=== PATIENT | male | born 1945 | race Caucasian/White ===

== ENCOUNTER 2016-09-08 13:53 | Emergency (ER) | payer MEDICARE, BC ==
[2016-09-08 14:27] VITALS: RESP 18
[2016-09-08] MEDS ORDERED: SODIUM CHLORIDE 0.9% 1,000 ML IV ONE (15:15)
[2016-09-08] MEDS ORDERED: MORPHINE SULFATE 4 MG/ML SYRINGE IV STA (15:15)
--- NOTE | 2016-09-08 15:18 | ED ---
Fall HPI - General Chief Complaint: Fall Stated Complaint: Fall/SHIVANI/Hip pain Time Seen by Provider: 09/08/16 14:51 Source: patient Mode of arrival: wheelchair - History of Present Illness Initial Comments: Patient complains of injuries from a fall. He states that he injured his right hip, and his right shoulder. Patient also has some tenderness to the right side of his upper abdomen and lower chest. He has no nausea or vomiting. He has no neck pain. He has no neck stiffness. He denied his head. He denies conscious. He has no pain or swelling in the calves. He has no palpitations. He took no pain medication prior to arrival. - Related Data Home Medications Medication Instructions Recorded Confirmed Atorvastatin [Lipitor] 20 mg PO HS 09/08/16 09/08/16 Cholecalciferol [Vitamin D3] 1,000 unit PO DAILY 09/08/16 09/08/16 Cinnamon Bark [Cinnamon] 500 mg PO DAILY 09/08/16 09/08/16 Garlic 1 tab PO DAILY 09/08/16 09/08/16 [place]-3 Fatty Acids/Fish Oil [Fish 1 cap PO DAILY 09/08/16 09/08/16 Oil 1,000 mg Softgel] Potassium 99 mg PO DAILY 09/08/16 09/08/16 Ubidecarenone [Co Q-10] 100 mg PO DAILY 09/08/16 09/08/16 Vitamin B Complex 1 cap PO DAILY 09/08/16 09/08/16 amLODIPine BESYLATE/BENAZEPRIL 1 cap PO DAILY 09/08/16 09/08/16 [Lotrel 10-20 mg Capsule] Allergies Allergy/AdvReac Type Severity Reaction Status Date / Time SEASONAL ALLERGIES Allergy Itching Uncoded 09/08/16 15:48 Review of Systems ROS Statement: Those systems with pertinent positive or pertinent negative responses have been documented in the HPI. ROS Other: All systems not noted in ROS Statement are negative. Past Medical History Past Medical History: Cancer, Hyperlipidemia, Hypertension Additional Past Medical History / Comment(s): cervical spine pain History of Any Multi-Drug Resistant Organisms: None Reported Past Surgical History: Adenoidectomy, Hernia Repair, Orthopedic Surgery, Tonsillectomy Additional Past Surgical History / Comment(s): heel spurs, bilateral hand, throat. skin cancer Past Psychological History: No Psychological Hx Reported Smoking Status: Never smoker Past Alcohol Use History: Daily Past Drug Use History: None Reported General Exam Limitations: no limitations General appearance: alert, in no apparent distress Head exam: Present: atraumatic, normocephalic, normal inspection Eye exam: Present: normal appearance, PERRL, EOMI. Absent: scleral icterus, conjunctival injection, periorbital swelling ENT exam: Present: normal exam, mucous membranes moist Neck exam: Present: normal inspection. Absent: tenderness, meningismus, lymphadenopathy Respiratory exam: Present: normal lung sounds bilaterally. Absent: respiratory distress, wheezes, rales, rhonchi, stridor Cardiovascular Exam: Present: regular rate, normal rhythm, normal heart sounds. Absent: systolic murmur, diastolic murmur, rubs, gallop, clicks GI/Abdominal exam: Present: soft, tenderness, normal bowel sounds. Absent: distended, guarding, rebound, rigid Extremities exam: Present: normal inspection, full ROM, normal capillary refill. Absent: tenderness, pedal edema, joint swelling, calf tenderness Back exam: Present: normal inspection Neurological exam: Present: alert, oriented X3, CN II-XII intact Psychiatric exam: Present: normal affect, normal mood Skin exam: Present: warm, dry, intact, normal color. Absent: rash Course Vital Signs 09/08/16 14:21 Temperature 98.7 F Pulse Rate 78 Respiratory 18 Rate Blood Pressure 146/70 O2 Sat by Pulse 94 L Oximetry Medical Decision Making - Medical Decision Making Patient presents to the emerge department with a fall. He denies conscious. Imaging reveals multiple rib fractures on the right side with a tiny pneumothorax. Patient will be admitted to trauma surgery in serious condition. - Lab Data Result diagrams: 09/08/16 15:50 09/08/16 15:50 Lab Results 09/08/16 09/08/16 09/08/16 Range/Units 15:50 15:50 15:50 WBC 13.0 H (3.8-10.6) k/uL RBC 4.61 (4.30-5.90) m/uL Hgb 14.7 (13.0-17.5) gm/dL Hct 43.2 (39.0-53.0) % MCV 93.5 (80.0-100.0) fL MCH 31.8 (25.0-35.0) pg MCHC 34.0 (31.0-37.0) g/dL RDW 13.1 (11.5-15.5) % Plt Count 132 L (150-450) k/uL Neutrophils % 88 % Lymphocytes % 5 % Monocytes % 6 % Eosinophils % 1 % Basophils % 0 % Neutrophils # 11.4 H (1.3-7.7) k/uL Lymphocytes # 0.7 L (1.0-4.8) k/uL Monocytes # 0.7 (0-1.0) k/uL Eosinophils # 0.1 (0-0.7) k/uL Basophils # 0.0 (0-0.2) k/uL PT 9.8 (9.0-12.0) sec INR 1.0 (<1.1) APTT 19.2 L (22.0-30.0) sec Sodium 141 (137-145) mmol/L Potassium 3.7 (3.5-5.1) mmol/L Chloride 107 (98-107) mmol/L Carbon Dioxide 24 (22-30) mmol/L Anion Gap 10 mmol/L BUN 21 H (9-20) mg/dL Creatinine 0.90 (0.66-1.25) mg/dL Est GFR (MDRD) Af Amer >60 (>60 ml/min/1.73 sqM) Est GFR (MDRD) Non-Af >60 (>60 ml/min/1.73 sqM) Glucose 141 H (74-99) mg/dL Calcium 9.4 (8.4-10.2) mg/dL 09/08/16 15:39 Twelve-lead EKG is obtained, interpreted by me showing ventricular rate 74 bpm, normal [place] interval and Roman complexes, no ST elevation or depression, interpreted by me as normal sinus rhythm. Disposition Clinical Impression: Fall, Rib fractures Disposition: ADMITTED IP TO THIS HOSP Condition: Serious Time of Disposition: 17:04
--- NOTE | 2016-09-08 16:18 | XR ---
EXAMINATION TYPE: XR pelvis AP view DATE OF EXAM: 09/08/2016 4:15 PM CLINICAL HISTORY: pain TECHNIQUE: Single view the pelvis is submitted. FINDINGS: No evidence for fracture, dislocation or bony lesion. Joint spaces are well-preserved. S I joints appear symmetric. IMPRESSION: 1. No acute fracture or dislocation seen. ICD 10 NO FRACTURE, INITIAL EVALUATION
--- NOTE | 2016-09-08 16:21 | XR ---
EXAMINATION TYPE: XR shoulder complete RT DATE OF EXAM: 09/08/2016 4:15 PM CLINICAL HISTORY: pain TECHNIQUE: Three views of the right shoulder are obtained. COMPARISON: None FINDINGS: There is no acute fracture/dislocation evident. The acromioclavicular and glenohumeral cuate int spaces appear within normal limits. Multiple right-sided rib fractures extending from right ribs 2 through 7. No additional ribs are imaged at this time. IMPRESSION: 1. There is no acute fracture or dislocation of the right shoulder. 2. Multiple right-sided rib fractures however are noted.
--- NOTE | 2016-09-08 16:23 | XR ---
EXAMINATION TYPE: XR chest 1V portable DATE OF EXAM: 09/08/2016 4:16 PM HISTORY: Shortness of breath. COMPARISON: None. TECHNIQUE: Single view of the chest is submitted. FINDINGS: Demonstrated are scattered senescent parenchymal change. There is no evidence for focal infiltrate. The heart is stable. Hilar and mediastinal structures are within normal limits. Displaced fractures of right ribs 2 through 9. No evidence of pneumothorax. Associated pleural parenc hymal thickening. IMPRESSION: 1. Displaced fractures of right ribs 2 through 9. No evidence of pneumothorax. Associated pleural pa renchymal thickening. Correlate clinically for possible flail chest.
[2016-09-08 16:30] LABS: Basophils % (A) 0 %; CH 33.3; CHCM 35.8; Eosinophils # (A) 0.1 k/uL (0-0.7); Eosinophils % (A) 1 %; HCT 43.2 % (39.0-53.0); HDW 2.76; HGB 14.7 gm/dL (13.0-17.5); Luc # (Auto) 0.14; Luc % (Auto) 1; Lymphocytes # (A) 0.7 k/uL (1.0-4.8); Lymphocytes % (A) 5 %; MCH 31.8 pg (25.0-35.0); MCV 93.5 fL (80.0-100.0); Monocytes # (A) 0.7 k/uL (0-1.0); Monocytes % (A) 6 %; Neutrophils # (A) 11.4 k/uL (1.3-7.7); Neutrophils % (A) 88 %; RBC 4.61 m/uL (4.30-5.90); RDW 13.1 % (11.5-15.5); WBC (Perox) 13.19
[2016-09-08 16:39] LABS: Anion Gap 10 mmol/L; Blood Urea Nitrogen 21 mg/dL (9-20); Calcium 9.4 mg/dL (8.4-10.2); Carbon Dioxide 24 mmol/L (22-30); Chloride 107 mmol/L (98-107); Glucose 141 mg/dL (74-99); Non-African American GFR(MDRD) >60 (>60 ml/min/1.73 sqM); Potassium 3.7 mmol/L (3.5-5.1); Sodium 141 mmol/L (137-145)
[2016-09-08 16:43] LABS: Prothrombin Time 9.8 sec (9.0-12.0)
[2016-09-08 16:51] LABS: Partial Thromboplastin Time 19.2 sec (22.0-30.0)
[2016-09-08] MEDS ORDERED: KETOROLAC 30 MG/ML 1 ML VIAL IVP STA (16:55)
--- NOTE | 2016-09-08 16:57 | CT ---
EXAMINATION TYPE: CT ChestAbdPelvis w con DATE OF EXAM: 09/08/2016 4:42 PM COMPARISON: NONE HISTORY: 5 foot fall from ladder, landing on right shoulder and chest. CT DLP: 964.50 mGycm CONTRAST: Contrast enhanced Trauma CT of the Chest, Abdomen and Pelvis is performed with IV Contrast, patient i njected with 100 mL of Omnipaque 300. Chest: LUNGS: There is a tiny right-sided pneumothorax present estimated at less than 5%. There is pleural t hickening noted at the site of multiple right-sided rib fractures. Patchy basilar densities right gre ater than left may reflect atelectasis although a degree of contusion is not excluded. MEDIASTINUM: Thoracic aorta is of normal caliber without CT evidence to suggest traumatic induced ao rtic injury. No mediastinal fluid or blood. No pericardial fluid or cardia abnormality. The heart i s mildly enlarged. HILAR STRUCTURES: No evidence for mass. No hilar adenopathy is appreciated. OTHER: No significant abnormality. OSSEOUS: Multiple contiguous 7 displaced rib fractures extending from right rib 2 through 9. While no segmental fractures are seen, given the contiguous nature of the fractures one should correlate for possible flail chest. Right chest wall hematoma measuring 4.8 x 1.9 cm with small amount of subcutane ous air. CT ABDOMEN AND PELVIS FINDINGS: LIVER/GB: No focal laceration, contusion or subcapsular hemorrhage. No calcified gallstones. No s pace occupying hepatic lesion. Biliary tree is of normal caliber. Incidental hepatic steatosis. PANCREAS: No evidence for transection. No inflammation. No distinct mass. SPLEEN: No focal laceration, contusion or subcapsular hemorrhage. 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 ADRENALS: No hemorrhage. No nodule. No thickening. KIDNEYS/BLADDER: No focal laceration, contusion or subcapsular hemorrhage. No hydronephrosis. 8 mm calculus left kidney. No disctinct renal mass. BOWEL: Bowel is intact. No evidence for pneumoperitoneum. GENITAL ORGANS: No gross abnormality. Incidental prostate enlargement. LYMPH NODES: No greater than 1cm abdominal or pelvic lymph nodes areappreciated. AORTA: No traumatic aortic injury visualized. OSSEOUS STRUCTURES: Incidental fracture of right transverse process of L1. No additional fracture se en with certainty at this time. OTHER: No evidence for hemoperitoneum. IMPRESSION: 1. Multiple contiguous right-sided rib fractures. Correlate clinically for flail chest. 2. Very small right-sided pneumothorax estimated at less than 5%. 3. Associated pleural thickening on the right with probable basilar atelectasis. A degree of contusio n is difficult to exclude. 4. Right chest wall hematoma with a small amount of subcutaneous air. 5. No solid or hollow abdominal visceral injury 6. incidental transverse process fracture of the L1 on the right
[2016-09-08] MEDS ORDERED: ONDANSETRON 4 MG/2 ML VIAL IVP PRN (17:12)
[2016-09-08] MEDS ORDERED: MORPHINE SULFATE 4 MG/ML SYRINGE IV PRN (17:12)
[2016-09-08] MEDS ORDERED: traMADol 50 MG TAB PO PRN (17:12)
[2016-09-08] MEDS ORDERED: TEMAZEPAM 15 MG CAP PO PRN (17:12)
[2016-09-08] MEDS ORDERED: NALOXONE 0.4 MG/ML 1 ML VIAL IV PRN (17:12)
[2016-09-08 18:13] VITALS: BP 161/75; PULSE 84; TEMP 98.4
--- NOTE | 2016-09-08 19:09 | P.GSCN ---
History of Present Illness Consult date: 09/08/16 Reason for Consult: Multiple rib fractures status post fall Requesting physician: Efren Frank History of present illness: The patient is a 71-year-old gentleman who presents as a fall from an 8 foot ladder. He was in his garage attempting to place cardboard along the storage space of his garage shelf. He had misstepped and fell onto his right shoulder and onto his back. He reports the ladder falling on top of. He also reports a recent history of physical therapy along his cervical spine for bone spurs. He complains of right upper quadrant abdominal pain. Imaging studies are consistent with multiple rib fractures along the right side including atelectasis. Given the mechanism of injury including history, he is being admitted to the trauma service. He denies any loss of consciousness. Review of Systems CONSTITUTIONAL: Denies any fever or chills. Denies recent weight loss or weight gain. HEENT: Denies any trouble with vision or nosebleeds. No difficulty swallowing. He is hard of hearing. LYMPHATIC: The patient denies any lumps and bumps around the neck. ENDOCRINE: Denies any thyroid disorders. Denies any blood sugar glucose intolerance. RESPIRATORY: Denies pneumonia. Denies any troubles with breathing or dyspnea on exertion. Reports troubles with deep breathing since fall. CARDIOVASCULAR: Denies any chest pain, palpitations, or recent heart attacks. GASTROINTESTINAL: Denies heart burn, constipation or bright red blood per rectum. GENITOURINARY: Denies any blood in urine or increased urinary frequency. MUSCULOSKELETAL: Has moderate to severe back pain, stiffness or joint arthritis present prior to fall. NEUROLOGIC: Denies any numbness or tingling along the distal extremities. No seizure disorders or headaches. PSYCHIATRIC: Denies depression or suidical ideation. HEMATOLOGIC: Denies any abnormal bleeding or bruising. Past Medical History Past Medical History: Cancer, Hyperlipidemia, Hypertension Additional Past Medical History / Comment(s): cervical spine pain History of Any Multi-Drug Resistant Organisms: None Reported Past Surgical History: Adenoidectomy, Hernia Repair, Orthopedic Surgery, Tonsillectomy Additional Past Surgical History / Comment(s): heel spurs, bilateral hand, throat. skin cancer Past Psychological History: No Psychological Hx Reported Smoking Status: Never smoker Past Alcohol Use History: Daily Past Drug Use History: None Reported Medications and Allergies Home Medications Medication Instructions Recorded Confirmed Type Atorvastatin [Lipitor] 20 mg PO HS 09/08/16 09/08/16 History Cholecalciferol [Vitamin D3] 1,000 unit PO DAILY 09/08/16 09/08/16 History Cinnamon Bark [Cinnamon] 500 mg PO DAILY 09/08/16 09/08/16 History Garlic 1 tab PO DAILY 09/08/16 09/08/16 History [place]-3 Fatty Acids/Fish Oil [Fish 1 cap PO DAILY 09/08/16 09/08/16 History Oil 1,000 mg Softgel] Potassium 99 mg PO DAILY 09/08/16 09/08/16 History Ubidecarenone [Co Q-10] 100 mg PO DAILY 09/08/16 09/08/16 History Vitamin B Complex 1 cap PO DAILY 09/08/16 09/08/16 History amLODIPine BESYLATE/BENAZEPRIL 1 cap PO DAILY 09/08/16 09/08/16 History [Lotrel 10-20 mg Capsule] Allergies Allergy/AdvReac Type Severity Reaction Status Date / Time SEASONAL ALLERGIES Allergy Itching Uncoded 09/08/16 15:48 Surgical - Exam Vital Signs Temp Pulse Resp BP Pulse Ox 98.7 F 78 18 146/70 94 L 09/08/16 14:21 09/08/16 14:21 09/08/16 14:21 09/08/16 14:21 09/08/16 14:21 GENERAL: Well developed and in no acute distress. Pleasant. HEENT: No sclera icterus. Extraocular movements grossly intact. Moist buccal mucosa. Head is atraumatic, normocephalic. No nasal drainage. He is hard of hearing on exam. NECK: Supple without lymphadenopathy. No JV distention. No cervical spine tenderness. CHEST: Non-labored respirations. Faint inspiratory effort. Tender along the right mid lateral and inferior chest wall. CARDIOVASCULAR: Regular rate and rhythm. Palpable 2+ radial pulses. ABDOMEN: Soft. Mild distention. No peritonitis. Minimal tenderness right upper quadrant. MUSCULOSKELETAL: No clubbing, cyanosis or edema. NEUROLOGIC: No focal or lateralizing signs. Cranial nerves II through XII grossly within normal limits. PSYCH: Appropriate affect. Alert and oriented to person, place and time. Results - Labs 09/08/16 15:50 09/08/16 15:50 Abnormal Lab Results - Last 24 Hours (Table) 09/08/16 09/08/16 09/08/16 Range/Units 15:50 15:50 15:50 WBC 13.0 H (3.8-10.6) k/uL Plt Count 132 L (150-450) k/uL Neutrophils # 11.4 H (1.3-7.7) k/uL Lymphocytes # 0.7 L (1.0-4.8) k/uL APTT 19.2 L (22.0-30.0) sec BUN 21 H (9-20) mg/dL Glucose 141 H (74-99) mg/dL Diabetes panel 09/08/16 Range/Units 15:50 Sodium 141 (137-145) mmol/L Potassium 3.7 (3.5-5.1) mmol/L Chloride 107 (98-107) mmol/L Carbon Dioxide 24 (22-30) mmol/L BUN 21 H (9-20) mg/dL Creatinine 0.90 (0.66-1.25) mg/dL Glucose 141 H (74-99) mg/dL Calcium 9.4 (8.4-10.2) mg/dL Calcium panel 09/08/16 Range/Units 15:50 Calcium 9.4 (8.4-10.2) mg/dL Pituitary panel 09/08/16 Range/Units 15:50 Sodium 141 (137-145) mmol/L Potassium 3.7 (3.5-5.1) mmol/L Chloride 107 (98-107) mmol/L Carbon Dioxide 24 (22-30) mmol/L BUN 21 H (9-20) mg/dL Creatinine 0.90 (0.66-1.25) mg/dL Glucose 141 H (74-99) mg/dL Calcium 9.4 (8.4-10.2) mg/dL Adrenal panel 09/08/16 Range/Units 15:50 Sodium 141 (137-145) mmol/L Potassium 3.7 (3.5-5.1) mmol/L Chloride 107 (98-107) mmol/L Carbon Dioxide 24 (22-30) mmol/L BUN 21 H (9-20) mg/dL Creatinine 0.90 (0.66-1.25) mg/dL Glucose 141 H (74-99) mg/dL Calcium 9.4 (8.4-10.2) mg/dL - Imaging Chest x-ray: report reviewed CT scan - abdomen: report reviewed, image reviewed CT scan - chest: report reviewed, image reviewed CT scan - pelvis: report reviewed (Findings are consistent with multiple right- sided for acute fractures 2 through 7 with small pneumothorax and subcutaneous emphysema with chest wall hematoma.), image reviewed Assessment and Plan (1) Fall from ladder Status: Acute (2) Multiple fractures of ribs, right side, initial encounter for closed fracture Status: Acute (3) Traumatic pneumothorax Status: Acute (4) Contusion of right chest wall Status: Acute (5) Mild basilar atelectasis of both lungs Status: Acute (6) Hypertensive heart disease Status: Chronic (7) Hard of hearing Status: Chronic (8) Right upper quadrant pain Status: Acute Plan: 1. Per trauma protocol, patient needs ICU criteria for admission. Agree with admission with pulmonary consultation. 2. Pulmonary toilet advised. 3. DVT prophylaxis. 4. Antibiotic prophylaxis. 5. Supplemental oxygen for traumatic small pneumothorax. 6. Pain management for multiple rib fractures. ADDENDUM: I was contacted by the emergency room provider whereby no intensive care unit beds were available. As a result, patient will be transferred for critical care bed at a tertiary facility. The above was described to the patient's family regarding plan of care.
[2016-09-08] MEDS ORDERED: ATORVASTATIN 20 MG TAB PO SCH (21:00)
[2016-09-08] MEDS ORDERED: FAMOTIDINE 20 MG TAB PO SCH (21:00)
[2016-09-09] MEDS ORDERED: LISINOPRIL 20 MG TAB PO SCH (09:00)
[2016-09-09] MEDS ORDERED: CHOLECALCIFEROL 1,000 UNIT TAB PO SCH (09:00)
[2016-09-09] MEDS ORDERED: amLODIPine 10 MG TAB PO SCH (09:00)
== END 2016-09-08 18:48 | disposition other institution (70) ==
LOC: EC 13:53 → UNDOADMIN 17:12 → 5MS5E 17:12 → EC 18:48
DX: S27.0XXA Traumatic pneumothorax, initial encounter (principal); S22.41XA Multiple fractures of ribs, right side, initial encounter for closed fracture; E78.5 Hyperlipidemia, unspecified; Z79.899 Other long term (current) drug therapy; Z91.048 Other nonmedicinal substance allergy status; W11.XXXA Fall on and from ladder, initial encounter; Y92.015 Private garage of single-family (private) house as the place of occurrence of the external cause; I11.9 Hypertensive heart disease without heart failure
CPT/HCPCS: 36415; 93005; 80048; 85025; 85610; 85730; 71010; 72170; 73030; 71260; 74177; 96374; 96375; 99285; J2270; J1885; Q9967

== ENCOUNTER 2016-09-16 15:33 | Inpatient (IN) | payer MEDICARE, BC ==
[2016-09-16 17:34] LABS: Calcium 9.4 mg/dL (8.4-10.2); Magnesium 2.8 mg/dL (1.6-2.3); Potassium 3.8 mmol/L (3.5-5.1); Total Bilirubin 0.8 mg/dL (0.2-1.3); Total Protein 6.6 g/dL (6.3-8.2)
--- NOTE | 2016-09-16 17:50 | XR ---
EXAMINATION TYPE: XR chest 2V DATE OF EXAM: 09/16/2016 5:40 PM COMPARISON: 09/08/2016 HISTORY: Chest pain TECHNIQUE: Frontal and lateral views of the chest are obtained. FINDINGS: There is bilateral patchy infiltrate and atelectasis in the lower lobes in the basal segme nts. There is no heart failure. There are no hilar masses. Mediastinum is normal. IMPRESSION: Bilateral basilar pulmonary infiltrates and atelectasis appear worse than last exam. No heart failure. Multiple right-sided old rib fractures.
[2016-09-16 17:52] LABS: Appearance,Urine Cloudy (Clear); Bilirubin,Urine Negative (Negative); Glucose,Urine (UA) Negative (Negative); Ketones,Urine Negative (Negative); Leukocyte Esterase,Urine Negative (Negative); Mucus,Urine Rare /hpf; Nitrite,Urine Negative (Negative); Particle Count 4721; Protein,Urine Trace (Negative); RBC,Urine 1 /hpf (0-5); Squamous Epithelial Cell,Urine 1 /hpf (0-4); UA Billing (MACRO vs. MICRO) MICRO; Urobilinogen,Urine <2.0 mg/dL (<2.0); WBC,Urine 13 /hpf (0-5)
[2016-09-16 17:53] LABS: Aty Lym Flag Slight; CH 33.7; CHCM 36.9; HCT 40.3 % (39.0-53.0); HGB 14.4 gm/dL (13.0-17.5); MCH 32.9 pg (25.0-35.0); MCHC 35.8 g/dL (31.0-37.0); MCV 91.7 fL (80.0-100.0); Mean Platelet Volume 8.7; RBC 4.39 m/uL (4.30-5.90); RDW 12.9 % (11.5-15.5); WBC 5.2 k/uL (3.8-10.6); WBC (Perox) 5.32
[2016-09-16 17:54] LABS: Creatine Kinase 52 U/L (55-170)
[2016-09-16 18:07] LABS: Troponin I <0.012 ng/mL (0.000-0.034)
[2016-09-16 18:38] LABS: Prothrombin Time 10.2 sec (9.0-12.0)
[2016-09-16] MEDS ORDERED: IV VANCOMYCIN PER PHARMACY 1 EACH MISC MISCELLANE PRN (18:47)
[2016-09-16 18:49] LABS: Add Differential Manual Differential
[2016-09-16] MEDS ORDERED: VANCOMYCIN 1,500 MG in SODIUM CHLORIDE 0.9% 250 ML IVPB STA (18:53)
[2016-09-16 18:55] LABS: Band Neutrophils % 21.5 %; Large Platelets Present; Metamyelocytes % 0.5 %; Nucleated Red Blood Cells 0 /100 WBC (0-0); Polychromasia Present; Total Cells Counted 200
[2016-09-16 18:56] LABS: Toxic Granulation Present
[2016-09-16] MEDS ORDERED: ENOXAPARIN 80 MG/0.8 ML SYRINGE SQ STA (19:48)
[2016-09-16] MEDS ORDERED: PNEUMONIA PROTOCOL UTILIZED 1 EACH MISC PO PRN (19:55)
[2016-09-16] MEDS ORDERED: DIAZEPAM 5 MG TAB PO PRN (20:12)
[2016-09-16] MEDS ORDERED: FLUTICASONE 50MCG/SPRAY NASAL 16GM EA NOSTRIL PRN (20:12)
--- NOTE | 2016-09-16 20:14 | ED ---
SOB HPI - General Chief Complaint: Shortness of Breath Stated Complaint: Dr Emely/Chest Pain Time Seen by Provider: 09/16/16 16:44 Source: patient Mode of arrival: wheelchair Limitations: no limitations - History of Present Illness Initial Comments: This patient is 71-year-old man who presents with complaint of worsening or shortness of breath also a cough and feeling cold. The patient had a fall approximately 9 days ago and reportedly had broken multiple ribs on the right side. The patient had been initially seen here and then transferred to [place] to be admitted on the surgical intensive care area the patient had been discharged to 4 days ago and over the interim has started to have symptoms described. The patient per his family also has been more somnolent and seems a little bit confused at times. Patient is continue to have some moderate right- sided chest wall pain. He denies hemoptysis. Patient denies leg pain or swelling. MD Complaint: shortness of breath Onset/Timin -: days(s) Quality: aching Consistency: constant Improves With: nothing Worsens With: movement Context: trauma/injury Treatments Prior to Arrival: none - Related Data Home Medications Medication Instructions Recorded Confirmed Atorvastatin [Lipitor] 20 mg PO HS 09/08/16 09/16/16 Cholecalciferol [Vitamin D3] 1,000 unit PO DAILY 09/08/16 09/16/16 Cinnamon Bark [Cinnamon] 500 mg PO DAILY 09/08/16 09/16/16 Garlic 1 tab PO DAILY 09/08/16 09/16/16 [place]-3 Fatty Acids/Fish Oil [Fish 1 cap PO DAILY 09/08/16 09/16/16 Oil 1,000 mg Softgel] Potassium 99 mg PO DAILY 09/08/16 09/16/16 Ubidecarenone [Co Q-10] 100 mg PO DAILY 09/08/16 09/16/16 Vitamin B Complex 1 cap PO DAILY 09/08/16 09/16/16 amLODIPine BESYLATE/BENAZEPRIL 1 cap PO DAILY 09/08/16 09/16/16 [Lotrel 10-20 mg Capsule] Ascorbic Acid [Vitamin C] 500 mg PO DAILY 09/16/16 09/16/16 [place] Fruit Extract 1 tab PO DAILY 09/16/16 09/16/16 Diazepam [Valium] 5 mg PO Q8H PRN 09/16/16 09/16/16 Fluticasone Nasal [place] [Flonase 2 spr EA NOSTRIL DAILY PRN 09/16/16 09/16/16 Nasal [place]] HYDROmorphone HCL [Dilaudid] 4 mg PO Q6H PRN 09/16/16 09/16/16 Ibuprofen [Motrin] 800 mg PO TID PRN 09/16/16 09/16/16 Lidocaine 5% Oint [Xylocaine 5% 1 applic TOPICAL TID PRN 09/16/16 09/16/16 Oint] hydrOXYzine PAMOATE [Vistaril] 25 mg PO Q8H PRN 09/16/16 09/16/16 Allergies Allergy/AdvReac Type Severity Reaction Status Date / Time SEASONAL ALLERGIES Allergy Itching Uncoded 09/16/16 15:46 Review of Systems ROS Statement: Those systems with pertinent positive or pertinent negative responses have been documented in the HPI. ROS Other: All systems not noted in ROS Statement are negative. Constitutional: Reports: chills, weakness Eyes: Denies: vision change Respiratory: Reports: as per HPI, cough, dyspnea. Denies: wheezes, hemoptysis Cardiovascular: Reports: as per HPI, chest pain. Denies: orthopnea, edema, syncope Gastrointestinal: Reports: constipation. Denies: abdominal pain, nausea, vomiting, diarrhea Genitourinary: Denies: dysuria, hematuria Musculoskeletal: Denies: back pain Skin: Denies: rash Neurological: Reports: confusion. Denies: headache, weakness, numbness, paresthesias Past Medical History Past Medical History: Cancer, Hyperlipidemia, Hypertension Additional Past Medical History / Comment(s): cervical spine pain History of Any Multi-Drug Resistant Organisms: None Reported Past Surgical History: Adenoidectomy, Hernia Repair, Orthopedic Surgery, Tonsillectomy Additional Past Surgical History / Comment(s): heel spurs, bilateral hand, throat. skin cancer Past Psychological History: No Psychological Hx Reported Smoking Status: Never smoker Past Alcohol Use History: Daily Past Drug Use History: None Reported General Exam Limitations: no limitations General appearance: alert, in no apparent distress Head exam: Present: atraumatic, normocephalic Eye exam: Present: normal appearance. Absent: scleral icterus, conjunctival injection ENT exam: Present: mucous membranes dry Neck exam: Present: normal inspection Respiratory exam: Present: rales (Bilateral bases), rhonchi, chest wall tenderness (Right chest wall tenderness and ecchymosis). Absent: respiratory distress, wheezes, accessory muscle use, prolonged expiratory Cardiovascular Exam: Present: regular rate, normal rhythm, normal heart sounds. Absent: systolic murmur, diastolic murmur, rubs, gallop GI/Abdominal exam: Present: soft, distended, diminished bowel sounds. Absent: tenderness, guarding, rebound, mass, pulsatile mass, hernia Extremities exam: Present: normal inspection, normal capillary refill. Absent: pedal edema, calf tenderness Back exam: Present: normal inspection. Absent: CVA tenderness (R), CVA tenderness (L) Neurological exam: Present: alert. Absent: oriented X3 (Shouldn't is oriented only to person and place did not know the date though.) Skin exam: Present: warm, dry, intact, normal color. Absent: rash Course Vital Signs 09/16/16 09/16/16 09/16/16 15:42 16:39 17:52 Temperature 100.1 F H 98.6 F 98.8 F Pulse Rate 91 94 92 Respiratory 18 22 18 Rate Blood Pressure 112/57 123/60 116/57 O2 Sat by Pulse 93 L 91 L 93 L Oximetry 09/16/16 18:28 Temperature 98.7 F Pulse Rate 91 Respiratory 17 Rate Blood Pressure 120/62 O2 Sat by Pulse 91 L Oximetry Medical Decision Making - Lab Data Result diagrams: 09/16/16 17:10 09/16/16 17:10 Lab Results 09/16/16 09/16/16 09/16/16 Range/Units 17:10 17:10 17:10 WBC 5.2 (3.8-10.6) k/uL RBC 4.39 (4.30-5.90) m/uL Hgb 14.4 (13.0-17.5) gm/dL Hct 40.3 (39.0-53.0) % MCV 91.7 (80.0-100.0) fL MCH 32.9 (25.0-35.0) pg MCHC 35.8 (31.0-37.0) g/dL RDW 12.9 (11.5-15.5) % Plt Count 214 (150-450) k/uL Neutrophils % (Manual) 26.5 % Band Neutrophils % 21.5 % Lymphocytes % (Manual) 20.0 % Monocytes % (Manual) 29.0 % Eosinophils % (Manual) 2.5 % Metamyelocytes % 0.5 % Neutrophils # (Manual) 2.5 (1.3-7.7) k/uL Lymphocytes # (Manual) 1.0 (1.0-4.8) k/uL Monocytes # (Manual) 1.5 H (0-1.0) k/uL Eosinophils # (Manual) 0.1 (0-0.7) k/uL Nucleated RBCs 0 (0-0) /100 WBC Toxic Granulation Present Large Platelets Present Polychromasia Present PT (9.0-12.0) sec INR (<1.1) APTT (22.0-30.0) sec D-Dimer (<0.60) mg/L FEU Sodium 129 L (137-145) mmol/L Potassium 3.8 (3.5-5.1) mmol/L Chloride 91 L (98-107) mmol/L Carbon Dioxide 16 L (22-30) mmol/L Anion Gap 22 mmol/L BUN 97 H* (9-20) mg/dL Creatinine 2.34 H (0.66-1.25) mg/dL Est GFR (MDRD) Af Amer 34 (>60 ml/min/1.73 sqM) Est GFR (MDRD) Non-Af 28 (>60 ml/min/1.73 sqM) Glucose 135 H (74-99) mg/dL Plasma Lactic Acid [place] (0.7-2.0) mmol/L Calcium 9.4 (8.4-10.2) mg/dL Magnesium 2.8 H (1.6-2.3) mg/dL Total Bilirubin 0.8 (0.2-1.3) mg/dL AST 23 (17-59) U/L ALT 69 (21-72) U/L Alkaline Phosphatase 93 (38-126) U/L Total Creatine Kinase 52 L (55-170) U/L CK-MB (CK-2) 3.0 H* (0.0-2.4) ng/mL CK-MB (CK-2) Rel Index 5.8 Troponin I <0.012 (0.000-0.034) ng/mL NT-Pro-B Natriuret Pep pg/mL Total Protein 6.6 (6.3-8.2) g/dL Albumin 3.6 (3.5-5.0) g/dL Urine Color Urine Appearance (Clear) Urine pH (5.0-8.0) Ur Specific [place] (1.001-1.035) Urine Protein (Negative) Urine Glucose (UA) (Negative) Urine Ketones (Negative) Urine Blood (Negative) Urine Nitrate (Negative) Urine Bilirubin (Negative) Urine Urobilinogen (<2.0) mg/dL Ur Leukocyte Esterase (Negative) Urine RBC (0-5) /hpf Urine WBC (0-5) /hpf Ur Squamous Epith Cells (0-4) /hpf Hyaline Casts (0-2) /lpf Urine Mucus (None) /hpf 09/16/16 09/16/16 09/16/16 Range/Units 17:10 17:10 17:20 WBC (3.8-10.6) k/uL RBC (4.30-5.90) m/uL Hgb (13.0-17.5) gm/dL Hct (39.0-53.0) % MCV (80.0-100.0) fL MCH (25.0-35.0) pg MCHC (31.0-37.0) g/dL RDW (11.5-15.5) % Plt Count (150-450) k/uL Neutrophils % (Manual) % Band Neutrophils % % Lymphocytes % (Manual) % Monocytes % (Manual) % Eosinophils % (Manual) % Metamyelocytes % % Neutrophils # (Manual) (1.3-7.7) k/uL Lymphocytes # (Manual) (1.0-4.8) k/uL Monocytes # (Manual) (0-1.0) k/uL Eosinophils # (Manual) (0-0.7) k/uL Nucleated RBCs (0-0) /100 WBC Toxic Granulation Large Platelets Polychromasia PT (9.0-12.0) sec INR (<1.1) APTT (22.0-30.0) sec D-Dimer (<0.60) mg/L FEU Sodium (137-145) mmol/L Potassium (3.5-5.1) mmol/L Chloride (98-107) mmol/L Carbon Dioxide (22-30) mmol/L Anion Gap mmol/L BUN (9-20) mg/dL Creatinine (0.66-1.25) mg/dL Est GFR (MDRD) Af Amer (>60 ml/min/1.73 sqM) Est GFR (MDRD) Non-Af (>60 ml/min/1.73 sqM) Glucose (74-99) mg/dL Plasma Lactic Acid [place] 0.7 (0.7-2.0) mmol/L Calcium (8.4-10.2) mg/dL Magnesium (1.6-2.3) mg/dL Total Bilirubin (0.2-1.3) mg/dL AST (17-59) U/L ALT (21-72) U/L Alkaline Phosphatase (38-126) U/L Total Creatine Kinase (55-170) U/L CK-MB (CK-2) (0.0-2.4) ng/mL CK-MB (CK-2) Rel Index Troponin I (0.000-0.034) ng/mL NT-Pro-B Natriuret Pep 307 pg/mL Total Protein (6.3-8.2) g/dL Albumin (3.5-5.0) g/dL Urine Color Yellow Urine Appearance Cloudy (Clear) Urine pH 5.0 (5.0-8.0) Ur Specific [place] 1.010 (1.001-1.035) Urine Protein Trace H (Negative) Urine Glucose (UA) Negative (Negative) Urine Ketones Negative (Negative) Urine Blood Trace H (Negative) Urine Nitrate Negative (Negative) Urine Bilirubin Negative (Negative) Urine Urobilinogen <2.0 (<2.0) mg/dL Ur Leukocyte Esterase Negative (Negative) Urine RBC 1 (0-5) /hpf Urine WBC 13 H (0-5) /hpf Ur Squamous Epith Cells 1 (0-4) /hpf Hyaline Casts 4 H (0-2) /lpf Urine Mucus Rare H (None) /hpf 09/16/16 Range/Units 18:05 WBC (3.8-10.6) k/uL RBC (4.30-5.90) m/uL Hgb (13.0-17.5) gm/dL Hct (39.0-53.0) % MCV (80.0-100.0) fL MCH (25.0-35.0) pg MCHC (31.0-37.0) g/dL RDW (11.5-15.5) % Plt Count (150-450) k/uL Neutrophils % (Manual) % Band Neutrophils % % Lymphocytes % (Manual) % Monocytes % (Manual) % Eosinophils % (Manual) % Metamyelocytes % % Neutrophils # (Manual) (1.3-7.7) k/uL Lymphocytes # (Manual) (1.0-4.8) k/uL Monocytes # (Manual) (0-1.0) k/uL Eosinophils # (Manual) (0-0.7) k/uL Nucleated RBCs (0-0) /100 WBC Toxic Granulation Large Platelets Polychromasia PT 10.2 (9.0-12.0) sec INR 1.0 (<1.1) APTT 22.0 (22.0-30.0) sec D-Dimer 4.10 H (<0.60) mg/L FEU Sodium (137-145) mmol/L Potassium (3.5-5.1) mmol/L Chloride (98-107) mmol/L Carbon Dioxide (22-30) mmol/L Anion Gap mmol/L BUN (9-20) mg/dL Creatinine (0.66-1.25) mg/dL Est GFR (MDRD) Af Amer (>60 ml/min/1.73 sqM) Est GFR (MDRD) Non-Af (>60 ml/min/1.73 sqM) Glucose (74-99) mg/dL Plasma Lactic Acid [place] (0.7-2.0) mmol/L Calcium (8.4-10.2) mg/dL Magnesium (1.6-2.3) mg/dL Total Bilirubin (0.2-1.3) mg/dL AST (17-59) U/L ALT (21-72) U/L Alkaline Phosphatase (38-126) U/L Total Creatine Kinase (55-170) U/L CK-MB (CK-2) (0.0-2.4) ng/mL CK-MB (CK-2) Rel Index Troponin I (0.000-0.034) ng/mL NT-Pro-B Natriuret Pep pg/mL Total Protein (6.3-8.2) g/dL Albumin (3.5-5.0) g/dL Urine Color Urine Appearance (Clear) Urine pH (5.0-8.0) Ur Specific [place] (1.001-1.035) Urine Protein (Negative) Urine Glucose (UA) (Negative) Urine Ketones (Negative) Urine Blood (Negative) Urine Nitrate (Negative) Urine Bilirubin (Negative) Urine Urobilinogen (<2.0) mg/dL Ur Leukocyte Esterase (Negative) Urine RBC (0-5) /hpf Urine WBC (0-5) /hpf Ur Squamous Epith Cells (0-4) /hpf Hyaline Casts (0-2) /lpf Urine Mucus (None) /hpf - EKG Data -: EKG Interpreted by Me EKG shows normal: sinus rhythm, axis (Normal), intervals (Normal), ST-T waves Rate: normal (Rate 93 bpm) Interpretation: LVH (With repolarization abnormality), other (Old inferior infarct.) Disposition Clinical Impression: Pneumonia, Acute renal failure (ARF), Acute delirium Disposition: ADMITTED IP TO THIS [facility] Condition: Poor Referrals: Chio Rodriguez III, MD [Primary Care Provider] - 1-2 days
--- NOTE | 2016-09-16 20:59 | US ---
EXAMINATION TYPE: US venous doppler duplex LE BI DATE OF EXAM: 09/16/2016 8:45 PM COMPARISON: NONE CLINICAL HISTORY: R/O DVT. SOB, leg pain and swelling SIDE PERFORMED: Bilateral VESSELS IMAGED: External Iliac Vein (EIV) Common Femoral Vein Deep Femoral Vein Greater Saphenous Vein * Femoral Vein Popliteal Vein Small Saphenous Vein * Proximal Calf Veins (* superficial vessels) TECHNOLOGIST IMPRESSION: wnl Right Leg: Negative for DVT, at this time Left Leg: Negative for DVT, at this time IMPRESSION: Normal exam. No evidence of deep venous thrombosis in right and left leg.
[2016-09-16] MEDS: HYDROmorphone 2 MG TAB PO PRN (21:09)
[2016-09-16] MEDS: SODIUM CHLORIDE 0.9% 1,000 ML IV SCH (22:50)
[2016-09-16] MEDS: ATORVASTATIN 20 MG TAB PO SCH (22:51)
[2016-09-17] MEDS ORDERED: PIPERACILLIN-TAZOBACTAM 3.375 GM in DEXTROSE/WATER 1 50ML.BAG IVPB SCH
[2016-09-17] MEDS: HYDROmorphone 2 MG TAB PO PRN ×3 (04:23→21:44)
[2016-09-17] MEDS: SODIUM CHLORIDE 0.9% 1,000 ML IV SCH ×2 (07:01→18:03)
[2016-09-17] MEDS ORDERED: ENOXAPARIN 80 MG/0.8 ML SYRINGE SQ SCH (09:00)
[2016-09-17] MEDS ORDERED: NON-FORMULARY DRUG (Ubidecarenone [Co Q-10] 100 MG) PO SCH (09:00)
[2016-09-17] MEDS: CHOLECALCIFEROL 1,000 UNIT TAB PO SCH (09:55)
[2016-09-17] MEDS: B COMPLEX-VIT C-VIT E-ZINC 1 EACH TAB PO SCH (09:55)
[2016-09-17] MEDS: LISINOPRIL 20 MG TAB PO SCH (09:55)
[2016-09-17] MEDS: amLODIPine 10 MG TAB PO SCH (09:55)
[2016-09-17] MEDS: ASCORBIC ACID 500 MG TAB PO SCH (09:56)
--- NOTE | 2016-09-17 11:10 | XR ---
EXAMINATION TYPE: XR chest 2V DATE OF EXAM: 09/17/2016 11:05 AM COMPARISON: 09/16/2016 HISTORY: Shortness of breath FINDINGS: There is bilateral infiltrate and small right effusion. Right-sided rib fractures are noted. No sizab le pneumothorax. Heart size stable. IMPRESSION: 1. Bilateral infiltrate and small effusion. Numerous right-sided rib fractures are seen and previousl y reported.
--- NOTE | 2016-09-17 11:15 | NM ---
EXAMINATION TYPE: NM pul vent and perfuse DATE OF EXAM: 09/17/2016 11:01 AM COMPARISON: Chest x-ray 06/17/2017 HISTORY: Shortness of breath TECHNIQUE: Utilizing inhalation of 69.1 mCi Tc 99m DTPA aerosol and intravenous injection of 5.5 mCi of Tc 99m MAA, ventilation and perfusion images are acquired post injection in multiple projections. FINDINGS: There is a triple match at the right lung base corresponding to abnormal perfusion and ventilation up take and x-ray abnormality. IMPRESSION: Triple match compatible with intermediate probability for pulmonary embolism.
[2016-09-17] MEDS ORDERED: LEVOFLOXACIN 750MG-D5W PMX 750 MG in DEXTROSE/WATER 1 150ML.BAG IVPB SCH (12:00)
[2016-09-17] MEDS: PIPERACILLIN-TAZOBACTAM 3.375 GM in DEXTROSE/WATER 1 50ML.BAG IVPB SCH ×2 (14:10→22:06)
[2016-09-17] MEDS: hydrOXYzine PAMOATE 25 MG CAP PO PRN (14:19)
--- NOTE | 2016-09-17 15:08 | XR ---
EXAMINATION TYPE: XR KUB DATE OF EXAM: 09/17/2016 3:02 PM COMPARISON: NONE HISTORY: Abdominal distention TECHNIQUE: 3 views FINDINGS: There is a large amount of intestinal gas. There is no sign of free air. There are no patho logic calcifications over the kidneys. There is no evidence of a mass. Bony structures are intact. IMPRESSION: Intestinal gas pattern suggestive of ileus. No free air.
[2016-09-17] MEDS ORDERED: VANCOMYCIN 1,500 MG in SODIUM CHLORIDE 0.9% 250 ML IVPB SCH (18:00)
--- NOTE | 2016-09-17 19:31 | HP ---
DATE OF ADMISSION: CHIEF COMPLAINT: Difficulty in breathing. HISTORY OF PRESENT ILLNESS: Mr. Hein is a 71-year-old male with a past medical history of hypertension, hyperlipidemia, basal cell cancer of the skin, coming into the hospital with a chief complaint of difficulty in breathing and cough. The patient had a fall on 09/08/2016, 10 days back and had broken multiple ribs on the right side. He was initially seen in this hospital and then transferred to [place] to be admitted to the surgical intensive care. Patient has been discharged from there four days back and since then he started to have the complaints of difficulty in breathing. As per patient's family members, he has also been more somnolent and a bit confused at times. Patient states that he is in a lot of pain on the right side of his chest and cannot take any deep breaths. The patient also is having abdominal distention. He had had diarrhea a couple of times this morning and has been tested negative for C. difficile. Patient denies having any nausea or vomiting. Patient has is some mild difficulty in breathing. Denies having any chest pain. He is tachycardic. Denies having any swelling of his lower extremities. Patient has not been moving in and out of the bed due to severe pain that he has. His breathing has also been affected due to the pain. Denies having any fevers, but states that at times he feels cold. HOSPITAL COURSE: Patient had lab work done showing elevated creatinine 2.34 and due to his hypoxia and tachycardia there is a suspicion of PE, but as a CAT scan could not be done due to his acute kidney injury, patient did get VQ scan which was showing intermediate probability of pulmonary embolism. Patient has already been started on anticoagulation with Lovenox. REVIEW OF SYSTEMS: All 13 review of systems are done and negative except for the ones mentioned in the HPI. PAST MEDICAL HISTORY: Significant for basal cell cancer, status post removal, hypertension, hyperlipidemia. PAST SURGICAL HISTORY: Adenoidectomy, hernia repair, tonsillectomy. ALLERGIES: No known drug allergies. Patient's home medications: 1. Amlodipine benazepril 10/20 mg 1 capsule p.o. daily. 2. Potassium 10 mEq p.o. daily. 3. [place] 3 fatty acids. 4. Cinnamon bark 500 mg p.o. daily. 5. Vitamin B complex 1 capsule p.o. daily. 6. Garlic 1 tablet p.o. daily. 7. Vitamin D 3000 units p.o. daily. 8. Coenzyme Q 100 mg p.o. daily. 9. Atorvastatin 20 mg p.o. q.h.s. 10. Ascorbic acid 500 mg p.o. daily. 11. [place] fruit extract. 12. Diazepam 5 mg p.o. q.h.s. 13. Flonase, Dilaudid 4 mg p.o. q.6h. p.r.n. for pain. 14. Vistaril 25 mg p.o. q.8h p.r.n. for itching. 15. Motrin 800 mg p.o. 3 times a day p.r.n. for pain. 16. Lidocaine 5% ointment for local application. SOCIAL HISTORY: Never a smoker. Alcohol use daily. No history of drug abuse. FAMILY HISTORY: Positive for hypertension, hyperlipidemia, CVA/TIA, myocardial infarction. At the time of admission the patient had a fever of 100.1, heart rate of 91, respiratory rate 18, blood pressure 112/57, saturating at 93% on 2 liters of nasal cannula. GENERAL EXAMINATION: Elderly male appears to be he in slight discomfort due to abdominal distention. HEAD: Atraumatic, normocephalic. EYES: Pupils, round, and reactive to light. NECK: No JVD. No thyromegaly. CARDIOVASCULAR: S1, S2 heard. Slightly tachycardic. LUNGS: Coarse breath sounds at the lower lung bases. No wheezes. ABDOMEN: Soft, but distended. No tenderness or rigidity. Bowel sounds are hyperactive. BACK: Patient has bruising from the mid thoracic level up to his ischial tuberosity on the right side on his back. EXTREMITIES: Examination of the lower extremities no edema, no cyanosis, no clubbing. 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 No focal deficits. PSYCHIATRIC: Appropriate mood and affect. Patient's labs: Patient had a VQ scan which was showing intermediate probably of pulmonary embolism. Sodium of 129, potassium 3.8, chloride 91, bicarb 16, BUN 97, creatinine 2.34. Troponin less than 0.012. Chest x-ray showing bilateral infiltrates and small effusion and right-sided rib fractures and abdominal x-ray showing intestinal gas pattern suggestive of ileus. ASSESSMENT AND PLAN: 1. Shortness of breath, multifactorial. 2. Bilateral pulmonary infiltrates. 3. Intermediate probability of pulmonary embolism. 4. Hyponatremia. 5. Acute kidney injury. 6. Multiple right-sided rib fractures. 7. History of hypertension. 8. Hyperlipidemia. 9. History of basal cell skin cancer- s/p removal PLAN: As the patient has recent hospital stay and showing bilateral pulmonary infiltrates, will continue the patient on Zosyn and Levaquin for his chest infiltrates and due to the probability of intermediate pulmonary embolism, will continue with Lovenox and obtain a pulmonary consult. The patient is encouraged to use incentive spirometry. Reinforced that he needs to ask for pain medication if he is in pain. For his acute kidney injury we will continue with IV fluids and repeat his electrolytes for tomorrow morning. Will continue with the rest of his medication regimen and the treatment plan was discussed his and his son who are at the bedside and further recommendations depending on the progress of the patient. BRYSON
[2016-09-17] MEDS: ATORVASTATIN 20 MG TAB PO SCH (22:06)
[2016-09-18] MEDS: PIPERACILLIN-TAZOBACTAM 3.375 GM in DEXTROSE/WATER 1 50ML.BAG IVPB SCH ×2 (05:13→13:23)
[2016-09-18] MEDS: HYDROmorphone 2 MG TAB PO PRN ×2 (05:18→12:32)
[2016-09-18] MEDS: SODIUM CHLORIDE 0.9% 1,000 ML IV SCH ×3 (05:21→21:50)
[2016-09-18 06:41] LABS: Basophils % (A) 1 %; CH 33.5; CHCM 36.7; Eosinophils # (A) 0.1 k/uL (0-0.7); Eosinophils % (A) 3 %; HCT 34.1 % (39.0-53.0); HDW 3.14; HGB 11.9 gm/dL (13.0-17.5); Luc # (Auto) 0.18; Luc % (Auto) 4; Lymphocytes # (A) 0.6 k/uL (1.0-4.8); Lymphocytes % (A) 12 %; MCHC 34.8 g/dL (31.0-37.0); MCV 91.9 fL (80.0-100.0); Monocytes # (A) 0.5 k/uL (0-1.0); Monocytes % (A) 12 %; Neutrophils % (A) 67 %; RBC 3.71 m/uL (4.30-5.90); RDW 12.8 % (11.5-15.5); WBC 4.4 k/uL (3.8-10.6); WBC (Perox) 4.82
[2016-09-18 07:26] LABS: Calcium 8.3 mg/dL (8.4-10.2); Potassium 3.2 mmol/L (3.5-5.1)
[2016-09-18] MEDS: IBUPROFEN 800 MG TAB PO PRN (08:45)
[2016-09-18] MEDS: ASCORBIC ACID 500 MG TAB PO SCH (08:46)
[2016-09-18] MEDS: ENOXAPARIN 80 MG/0.8 ML SYRINGE SQ SCH (08:46)
[2016-09-18] MEDS: amLODIPine 10 MG TAB PO SCH (08:46)
[2016-09-18] MEDS: CHOLECALCIFEROL 1,000 UNIT TAB PO SCH (08:46)
[2016-09-18] MEDS: B COMPLEX-VIT C-VIT E-ZINC 1 EACH TAB PO SCH (08:46)
[2016-09-18] MEDS: LISINOPRIL 20 MG TAB PO SCH (08:47)
[2016-09-18] MEDS: hydrOXYzine PAMOATE 25 MG CAP PO PRN (12:33)
--- NOTE | 2016-09-18 12:41 | P.CNPUL ---
History of Present Illness Consult date: 09/18/16 Reason for consult: dyspnea, chest pain Chief complaint: Shortness of breath History of present illness: This a 71-year-old gentleman who apparently presents to the emergency room complaining of shortness of breath. The patient apparently fell about 9 or 10 days ago. He had multiple rib fractures on the right 8 or 9 or so. He was initially seen in our emergency room and then transferred to [facility]. He apparently was being transferred there for possible rib plating but that never occurred. The patient was therefore about 3 or 4 days and was discharged. The patient presents to our emergency department on 127 for complaints of shortness of breath. I'm seeing him for the first time today. I was just consulted either early this morning or late last night. The patient's also complaining of not being able take a deep breath. The patient also complains of some abdominal distention and abdominal pain. Coughing. Not producing much phlegm. Is feeling a bit better actually today than he did the last couple of days. No fever no chills. No nausea vomiting or diarrhea. X-rays are reviewed. Labs are reviewed. Medications are reviewed. Review of Systems A 12 point review of system is reviewed. The patient is complaining of shortness of breath which is actually better than it has been. Bit of a cough. Not producing much or any phlegm. Also complaining of abdominal distention and abdominal pain. Past Medical History Past Medical History: Cancer, Hyperlipidemia, Hypertension Additional Past Medical History / Comment(s): cervical spine pain History of Any Multi-Drug Resistant Organisms: None Reported Past Surgical History: Adenoidectomy, Hernia Repair, Orthopedic Surgery, Tonsillectomy Additional Past Surgical History / Comment(s): heel spurs, bilateral hand, throat. skin cancer Past Anesthesia/Blood Transfusion Reactions: No Reported Reaction Past Psychological History: No Psychological Hx Reported Smoking Status: Never smoker Past Alcohol Use History: Daily Past Drug Use History: None Reported - Past Family History Father Family Medical History: CVA/TIA, Hyperlipidemia, Hypertension, Myocardial Infarction ([place]) Medications and Allergies Home Medications Medication Instructions Recorded Confirmed Type Atorvastatin [Lipitor] 20 mg PO HS 09/08/16 09/16/16 History Cholecalciferol [Vitamin D3] 1,000 unit PO DAILY 09/08/16 09/16/16 History Cinnamon Bark [Cinnamon] 500 mg PO DAILY 09/08/16 09/16/16 History Garlic 1 tab PO DAILY 09/08/16 09/16/16 History [place]-3 Fatty Acids/Fish Oil [Fish 1 cap PO DAILY 09/08/16 09/16/16 History Oil 1,000 mg Softgel] Potassium 99 mg PO DAILY 09/08/16 09/16/16 History Ubidecarenone [Co Q-10] 100 mg PO DAILY 09/08/16 09/16/16 History Vitamin B Complex 1 cap PO DAILY 09/08/16 09/16/16 History amLODIPine BESYLATE/BENAZEPRIL 1 cap PO DAILY 09/08/16 09/16/16 History [Lotrel 10-20 mg Capsule] Ascorbic Acid [Vitamin C] 500 mg PO DAILY 09/16/16 09/16/16 History Aceves Fruit Extract 1 tab PO DAILY 09/16/16 09/16/16 History Diazepam [Valium] 5 mg PO Q8H PRN 09/16/16 09/16/16 History Fluticasone Nasal [place] [Flonase 2 spr EA NOSTRIL DAILY PRN 09/16/16 09/16/16 History Nasal [place]] HYDROmorphone HCL [Dilaudid] 4 mg PO Q6H PRN 09/16/16 09/16/16 History Ibuprofen [Motrin] 800 mg PO TID PRN 09/16/16 09/16/16 History Lidocaine 5% Oint [Xylocaine 5% 1 applic TOPICAL TID PRN 09/16/16 09/16/16 History Oint] hydrOXYzine PAMOATE [Vistaril] 25 mg PO Q8H PRN 09/16/16 09/16/16 History Allergies Allergy/AdvReac Type Severity Reaction Status Date / Time SEASONAL ALLERGIES Allergy Itching Uncoded 09/16/16 15:46 Physical Exam Osteopathic Statement: *. No significant issues noted on an osteopathic structural exam other than those noted in the History and Physical/Consult. Vitals: Vital Signs Temp Pulse Resp BP Pulse Ox 09/18/16 07:50 97.3 F L 92 18 106/57 95 09/18/16 04:00 97 F L 80 18 112/53 95 09/18/16 00:00 98.1 F 81 18 105/49 94 L 09/17/16 20:00 98.1 F 76 18 112/61 94 L 09/17/16 16:50 97.3 F L 76 18 94/46 95 Intake and Output 09/17/16 09/18/16 09/18/16 22:59 06:59 14:59 Intake Total 1300 Output Total 80 400 Balance -80 900 Intake: Intake, IV Titration 1300 Amount Piperacillin-Tazobactam 3 50 .375 gm In Dextrose/Water 1 50ml.bag @ 12.5 mls/hr IVPB Q8H [facility] Rx#: [id number] Piperacillin-Tazobactam 3 50 .375 gm In Dextrose/Water 1 50ml.bag @ 12.5 mls/hr IVPB Q8HR [facility] Rx#: [id number] Sodium Chloride 0.9% 1, 1200 000 ml @ 100 mls/hr IV . Q10H [facility] Rx#:[id number] Output: Urine 80 400 Other: Voiding Method Urinal Urinal Urinal # Voids 1 1 Weight 83.2 kg No acute distress, oriented 3. HEENT examination is grossly unremarkable. Mucous membranes are moist. There are no oral lesions. Neck supple. Full range of motion. No adenopathy or thyromegaly. Cardiovascular examination reveals regular rhythm rate. S1 and S2 normal. Lungs reveal diminished breath sounds throughout both lungs. More so on the right. A few scattered rhonchi on the right. No crackles. No wheezes. Abdomen significantly distended. It is tympanitic Extremities are intact. Results - Laboratory Findings CBC and BMP: 09/18/16 06:26 09/18/16 06:26 PT/INR, D-dimer PT 10.2 sec (9.0-12.0) 09/16/16 18:05 INR 1.0 (<1.1) 09/16/16 18:05 D-Dimer 4.10 mg/L FEU (<0.60) H 09/16/16 18:05 Abnormal lab findings: Abnormal Labs 09/17/16 09/18/16 09/18/16 09:51 06:26 06:26 RBC 3.71 L Hgb 11.9 L Hct 34.1 L Lymphocytes # 0.6 L Sodium 133 L Potassium 3.2 L Carbon Dioxide 18 L BUN 99 H* Creatinine 2.87 H 2.15 H Glucose 101 H Calcium 8.3 L - Diagnostic Findings Chest x-ray: image reviewed (Chest x-ray labs medications and so forth are all reviewed.) Assessment and Plan (1) Acute renal failure (ARF) Status: Acute (2) Pneumonia Status: Acute (3) Contusion of right chest wall Status: Acute (4) Fall from ladder Status: Acute (5) Multiple fractures of ribs, right side, initial encounter for closed fracture Status: Acute (6) Rib fractures Status: Acute (7) Hypertensive heart disease Status: Chronic Plan: Plan The patient's medications x-rays and labs are all reviewed. I would recommend a surgical consult for his abdominal distention. In addition, he should have an NG tube inserted to decompress the belly. This would help his breathing quite a bit. A computed tomography scan of the chest of the belly would also receive some consideration. Additional recommendations suggestions are forthcoming. In regards to his chest and lungs, incentive spirometry every hour while awake. He should also be on updrafts. We'll conceive is on any antibiotics. Additional recommendations suggestions are forthcoming. Time with Patient: Greater than 30
[2016-09-18] MEDS ORDERED: IPRATROPIUM-ALBUTEROL 3 ML NEB INHALATION PRN (12:42)
--- NOTE | 2016-09-18 15:35 | XR ---
EXAMINATION TYPE: XR chest 1V portable DATE OF EXAM: 09/18/2016 3:30 PM COMPARISON: 09/17/2016 HISTORY: NG tube placement TECHNIQUE: Single frontal view of the chest is obtained. FINDINGS: There is a nasogastric tube that is looped in the stomach. There are chest leads. There is blunting of costophrenic angles and more on the right side. There is infiltrate at the right lung ba se. There is no definite heart failure. There are old multiple rib fractures on the right side. IMPRESSION: NG tube is in good position. Right lower lobe infiltrate and right pleural effusion with out change compared to yesterday. No heart failure.
[2016-09-18] MEDS: LEVOFLOXACIN 250MG-D5W PMX 250 MG in DEXTROSE/WATER 1 50ML.BAG IVPB SCH (15:39)
[2016-09-18] MEDS ORDERED: Potassium Replacement Protocol 1 EACH MISC MISCELLANE PRN (15:48)
[2016-09-18] MEDS: IPRATROPIUM-ALBUTEROL 3 ML NEB INHALATION SCH ×2 (16:17→19:55)
--- NOTE | 2016-09-18 17:55 | P.GSCN ---
History of Present Illness Consult date: 09/18/16 History of present illness: Patient is a 71-year-old gentleman who presented to the emergency room with complaints of increasing shortness of breath. Of significance is the fact that the patient had fallen approximately 9 days prior and had multiple rib fractures on the right side. He will been transferred to [facility] to be admitted in the surgical intensive care unit and was discharged approximately 5 days ago. Since discharge the patient has had increasing abdominal distention which is contributed to shortness of breath. The patient upon admission underwent a chest x-ray revealed right lower lobe infiltrate and right pleural effusion. Patient also has abdominal distention and an NG tube was placed. KUB performed on 09/17 showed findings suggestive of ileus. Past medical history: 1. Hyperlipidemia 2. Hypertension 3. Cancer Past surgical history: 1. Adenoidectomy 2. Hernia repair 3. Orthopedic surgery 4. Tonsillectomy 5. Bilateral carpal tunnel 6. Heel spurs 7. Skin cancer Social history: Smoking: Negative Alcohol: Daily Recreational drug use: Negative Review of systems: HEENT negative Respiratory: Multiple rib fractures on the right Cardiovascular: Hypertension GI: Constipation : Hematuria in the past Musculoskeletal: Back pain Neurologic: Confusion Review of Systems - Constitutional Reports as per HPI - Cardiovascular Reports as per HPI, Reports high blood pressure - Respiratory Respiratory Comment(s): Multiple rib fractures on the right Reports as per HPI - Gastrointestinal Reports as per HPI, Reports bloating - Genitourinary Reports as per HPI - Musculoskeletal Musculoskeleta Comment(s): Back pain - Neurological Reports as per HPI Past Medical History Past Medical History: Cancer, Hyperlipidemia, Hypertension Additional Past Medical History / Comment(s): cervical spine pain History of Any Multi-Drug Resistant Organisms: None Reported Past Surgical History: Adenoidectomy, Hernia Repair, Orthopedic Surgery, Tonsillectomy Additional Past Surgical History / Comment(s): heel spurs, bilateral hand, throat. skin cancer Past Anesthesia/Blood Transfusion Reactions: No Reported Reaction Past Psychological History: No Psychological Hx Reported Smoking Status: Never smoker Past Alcohol Use History: Daily Past Drug Use History: None Reported - Past Family History Father Family Medical History: CVA/TIA, Hyperlipidemia, Hypertension, Myocardial Infarction ([place]) Medications and Allergies Home Medications Medication Instructions Recorded Confirmed Type Atorvastatin [Lipitor] 20 mg PO HS 09/08/16 09/16/16 History Cholecalciferol [Vitamin D3] 1,000 unit PO DAILY 09/08/16 09/16/16 History Cinnamon Bark [Cinnamon] 500 mg PO DAILY 09/08/16 09/16/16 History Garlic 1 tab PO DAILY 09/08/16 09/16/16 History [place]-3 Fatty Acids/Fish Oil [Fish 1 cap PO DAILY 09/08/16 09/16/16 History Oil 1,000 mg Softgel] Potassium 99 mg PO DAILY 09/08/16 09/16/16 History Ubidecarenone [Co Q-10] 100 mg PO DAILY 09/08/16 09/16/16 History Vitamin B Complex 1 cap PO DAILY 09/08/16 09/16/16 History amLODIPine BESYLATE/BENAZEPRIL 1 cap PO DAILY 09/08/16 09/16/16 History [Lotrel 10-20 mg Capsule] Ascorbic Acid [Vitamin C] 500 mg PO DAILY 09/16/16 09/16/16 History [place] Fruit Extract 1 tab PO DAILY 09/16/16 09/16/16 History Diazepam [Valium] 5 mg PO Q8H PRN 09/16/16 09/16/16 History Fluticasone Nasal [place] [Flonase 2 spr EA NOSTRIL DAILY PRN 09/16/16 09/16/16 History Nasal [place]] HYDROmorphone HCL [Dilaudid] 4 mg PO Q6H PRN 09/16/16 09/16/16 History Ibuprofen [Motrin] 800 mg PO TID PRN 09/16/16 09/16/16 History Lidocaine 5% Oint [Xylocaine 5% 1 applic TOPICAL TID PRN 09/16/16 09/16/16 History Oint] hydrOXYzine PAMOATE [Vistaril] 25 mg PO Q8H PRN 09/16/16 09/16/16 History Allergies Allergy/AdvReac Type Severity Reaction Status Date / Time SEASONAL ALLERGIES Allergy Itching Uncoded 09/16/16 15:46 Surgical - Exam Vital Signs Temp Pulse Resp BP Pulse Ox 100.1 F H 91 18 112/57 93 L 09/16/16 15:42 09/16/16 15:42 09/16/16 15:42 09/16/16 15:42 09/16/16 15:42 - General moderate distress - Eyes normal ocular movement - ENT normal pinna, normal nares - Neck no masses, trachea midline, no lymphadectomy - Respiratory Decreased breath sounds bilateral, greater on the right than on the left - Cardiovascular Heart Sounds: normal: S1, S2 - Abdomen Decreased bowel sounds Abdomen: non tender, distended Hernia: none - Psychiatric oriented to time, oriented to person, oriented to place, speech is normal Results - Labs 09/18/16 06:26 09/18/16 06:26 Abnormal Lab Results - Last 24 Hours (Table) 09/18/16 09/18/16 Range/Units 06:26 06:26 RBC 3.71 L (4.30-5.90) m/uL Hgb 11.9 L (13.0-17.5) gm/dL Hct 34.1 L (39.0-53.0) % Lymphocytes # 0.6 L (1.0-4.8) k/uL Sodium 133 L (137-145) mmol/L Potassium 3.2 L (3.5-5.1) mmol/L Carbon Dioxide 18 L (22-30) mmol/L BUN 99 H* (9-20) mg/dL Creatinine 2.15 H (0.66-1.25) mg/dL Glucose 101 H (74-99) mg/dL Calcium 8.3 L (8.4-10.2) mg/dL Diabetes panel 09/18/16 Range/Units 06:26 Sodium 133 L (137-145) mmol/L Potassium 3.2 L (3.5-5.1) mmol/L Chloride 99 (98-107) mmol/L Carbon Dioxide 18 L (22-30) mmol/L BUN 99 H* (9-20) mg/dL Creatinine 2.15 H (0.66-1.25) mg/dL Glucose 101 H (74-99) mg/dL Calcium 8.3 L (8.4-10.2) mg/dL Calcium panel 09/18/16 Range/Units 06:26 Calcium 8.3 L (8.4-10.2) mg/dL Pituitary panel 09/18/16 Range/Units 06:26 Sodium 133 L (137-145) mmol/L Potassium 3.2 L (3.5-5.1) mmol/L Chloride 99 (98-107) mmol/L Carbon Dioxide 18 L (22-30) mmol/L BUN 99 H* (9-20) mg/dL Creatinine 2.15 H (0.66-1.25) mg/dL Glucose 101 H (74-99) mg/dL Calcium 8.3 L (8.4-10.2) mg/dL Adrenal panel 09/18/16 Range/Units 06:26 Sodium 133 L (137-145) mmol/L Potassium 3.2 L (3.5-5.1) mmol/L Chloride 99 (98-107) mmol/L Carbon Dioxide 18 L (22-30) mmol/L BUN 99 H* (9-20) mg/dL Creatinine 2.15 H (0.66-1.25) mg/dL Glucose 101 H (74-99) mg/dL Calcium 8.3 L (8.4-10.2) mg/dL - Imaging Chest x-ray: report reviewed Abdominal x-ray: report reviewed, image reviewed Assessment and Plan Plan: Impression/plan: 1. 71-year-old male status post fall from a ladder with multiple right rib fractures 2. Elevated d-dimer 3. Probable right lower lobe pneumonia 4. Increasing abdominal distention and ileus versus partial bowel obstruction Plan: 1. Repeat abdominal x-rays 2. Agree with NG tube placement 3. Primary management as per Dr. Fraser
--- NOTE | 2016-09-18 18:09 | XR ---
EXAMINATION TYPE: XR abdomen 1V DATE OF EXAM: 09/18/2016 5:53 PM COMPARISON: Yesterday HISTORY: Abdominal distention TECHNIQUE: 3 views FINDINGS: There are numerous gas-filled loops of large and small bowel. There is no evidence of free air. I see no sign of a mass. There are no pathologic calcifications over the kidneys. IMPRESSION: Numerous gas filled loops of bowel consistent with ileus. No free air. No change compared to yesterday.
[2016-09-18] MEDS ORDERED: BISACODYL 10 MG SUPP RECTAL STA (18:26)
[2016-09-18] MEDS: POTASSIUM CHLORIDE 10 MEQ, LIDOCAINE 2% INJ 10 MG in SODIUM CHLORIDE 0.9% 100 ML IV SCH ×2 (18:45→21:50)
[2016-09-18] MEDS: ATORVASTATIN 20 MG TAB PO SCH (21:50)
[2016-09-19] MEDS: PIPERACILLIN-TAZOBACTAM 3.375 GM in DEXTROSE/WATER 1 50ML.BAG IVPB SCH ×4 (00:32→20:27)
[2016-09-19] MEDS: IBUPROFEN 800 MG TAB PO PRN (05:24)
[2016-09-19 06:48] LABS: Basophils % (A) 0 %; CH 33.1; CHCM 35.6; Eosinophils # (A) 0.2 k/uL (0-0.7); Eosinophils % (A) 3 %; HCT 35.9 % (39.0-53.0); HDW 3.18; HGB 11.9 gm/dL (13.0-17.5); Luc # (Auto) 0.21; Luc % (Auto) 3; Lymphocytes # (A) 0.8 k/uL (1.0-4.8); Lymphocytes % (A) 13 %; MCH 30.9 pg (25.0-35.0); MCHC 33.1 g/dL (31.0-37.0); MCV 93.4 fL (80.0-100.0); Mean Platelet Volume 7.8; Monocytes # (A) 0.5 k/uL (0-1.0); Monocytes % (A) 8 %; Neutrophils # (A) 4.5 k/uL (1.3-7.7); Neutrophils % (A) 72 %; RBC 3.84 m/uL (4.30-5.90); RDW 12.9 % (11.5-15.5); WBC 6.2 k/uL (3.8-10.6); WBC (Perox) 6.73
[2016-09-19 07:00] LABS: Anion Gap 16 mmol/L; Blood Urea Nitrogen 65 mg/dL (9-20); Calcium 8.5 mg/dL (8.4-10.2); Carbon Dioxide 15 mmol/L (22-30); Chloride 108 mmol/L (98-107); Glucose 93 mg/dL (74-99); Non-African American GFR(MDRD) 55 (>60 ml/min/1.73 sqM); Potassium 3.5 mmol/L (3.5-5.1); Sodium 139 mmol/L (137-145)
[2016-09-19] MEDS: IPRATROPIUM-ALBUTEROL 3 ML NEB INHALATION SCH ×4 (08:50→21:11)
[2016-09-19] MEDS: ENOXAPARIN 80 MG/0.8 ML SYRINGE SQ SCH (09:01)
--- NOTE | 2016-09-19 09:03 | P.PN ---
Subjective 71-year-old male being seen with the attending on rounds. Patients being seen by surgical service at the request of the attending for increased abdominal distention associated with shortness of breath. Abdominal x-ray was reviewed by the attending this morning suggestive of an ileus. Patient states is less abdominal pain. Nasal gastric tube in place approximately 200 mL in the canister. Patient states is passing gas and did have several loose watery stools yesterday evening Hospital course Approximate 9 days prior the patient fell substernal multiple rib fractures on the right side. Patient was seen in the emergency room and transferred to [facility] to the surgical ICU. Was discharged proximal 5 days ago. Patient states that since being discharged he has had increased abdominal distention with shortness of breath. Patient was readmitted to the hospital and upon admission an x-ray of the chest was obtained at [facility] show right lower lobe infiltrate with the right pleural effusion. Also patient was noted to have abdominal distention and the nasal gastric tube was placed at that time. And on September 09 a KUB was suggestive of an ileus. Surgical consultation had been requested patient has been followed by Dr. Connor Objective - Vital Signs Vital signs: Vital Signs Temp 97.3 F L 09/19/16 04:00 Pulse 90 09/19/16 04:00 Resp 18 09/19/16 04:00 BP 140/70 09/19/16 04:00 Pulse Ox 93 L 09/19/16 04:00 Intake & Output 09/18/16 09/19/16 09/19/16 18:59 06:59 18:59 Intake Total 350 Balance 350 Weight 82.4 kg Intake: Intake, IV Titration 350 Amount Levofloxacin 250Mg-D5w 250 Pmx 250 mg In Dextrose/ Water 1 50ml.bag @ 50 mls /hr IVPB Q24H [facility] Rx#: [id number] Levofloxacin 750Mg-D5w 50 Pmx 750 mg In Dextrose/ Water 1 150ml.bag @ 100 mls/hr IVPB Q48H [facility] Rx#: [id number] Piperacillin-Tazobactam 3 50 .375 gm In Dextrose/Water 1 50ml.bag @ 12.5 mls/hr IVPB Q8H [facility] Rx#: [id number] Other: Voiding Method Urinal Urinal # Voids 0 1 # Bowel Movements 0 1 - Exam Physical exam 71-year-old male resting in bed. States less abdominal pain Lungs posterior diminished bilaterally right greater than the left no wheezing no rhonchi no cough Heart S1-S2 audible regular monitor sinus denying chest pain Abdomen slightly distended improved from admission a few hypoactive bowel tones nasal gastric tube in place reports no nausea vomiting states urinating no difficulty Extremities no edema noted - Labs CBC & Chem 7: 09/19/16 06:12 09/19/16 06:12 Labs: Abnormal Lab Results - Last 24 Hours (Table) 09/19/16 09/19/16 Range/Units 06:12 06:12 RBC 3.84 L (4.30-5.90) m/uL Hgb 11.9 L (13.0-17.5) gm/dL Hct 35.9 L (39.0-53.0) % Lymphocytes # 0.8 L (1.0-4.8) k/uL Chloride 108 H (98-107) mmol/L Carbon Dioxide 15 L (22-30) mmol/L BUN 65 H (9-20) mg/dL Creatinine 1.30 H (0.66-1.25) mg/dL Assessment and Plan Plan: Impression Status post fall from a ladder sustaining multiple rib fractures on the right Chest x-ray suggests right lower lobe pneumonia Present on admission abdominal distention suspect likely due to an ileus Plan Nasal gastric tube to be clamped for the next 4 hours after 4 hours if there is less than 200 nasal gastric tube can be pulled Keep nothing by mouth except for ice chips Repeat abdominal x-ray in the morning Increase activity Further surgical recommendations pending will follow The above dictated assessment and findings were discussed with dr Ankit Connor Impression and the plan of care have been dictated as directed. Renuka Unger nurse practitioner acting as a scribe for Elvis
[2016-09-19] MEDS: amLODIPine 10 MG TAB PO SCH (09:05)
[2016-09-19] MEDS: HYDROmorphone 2 MG TAB PO PRN (09:06)
--- NOTE | 2016-09-19 11:29 | CDI ---
In responding to this query, please exercise your independent professional judgment. The [facility] Coding Staff and Clinical Documentation Specialists appreciate your assistance in clarifying documentation, maintaining compliance with coding guidelines, accurately documenting patients condition and capturing severity of illness. The fact that a question is asked does not imply that any particular answer is desired or expected. Communication forms are a method of clarifying documentation and are not made part of the Legal Health Record. Thank you in advance for your clarification. Last Revision, June 2015 Davidrian Hauser [address] [facility] [place] [address] Documentation Clarification Form Date: 09/19/2016 11:10:00 AM From: Kenn Mitchell, RN, BSN, CDI Admit Date: 09/16/2016 7:55:00 PM Patient Name: Pj Hein Visit Number: [id number] Dr. Kinjal Parham: Pneumonia was documented in the pulmonary consult and surgical consult. History/Risk Factors: 71 yo male presents with c/o worsening SOB and cough. He fell 9 days ago off a ladder and sustained multiple right sided rib fractures. He was sent to [facility] to be admitted to the surgical ICU and was discharged 4 days ago, after a 4 day stay. He c/o right sided chest wall pain. He has a history of hyperlipidemia, HTN and skin cancer Clinical Indicators: WBC: 5.2 Chest X-ray: b/l basilar pulmonary infiltrates and atelectasis Initial VS (on admit): 112/57, 91, 18, 100.1, 93% 2L NC Lung/Breathing assessment: rales @ b/l bases, rhonchi, right chest wall tenderness and ecchymosis Treatment: Antibiotics: Vanco x1 dose, Zosyn, Levaquin O2 @2L NC Breathing Tx: duonebs In order to capture the severity of condition, please clarify if the condition signifies and you are treating for: Bacterial Pneumonia, specify causal organism (if known) Gram Negative Pneumonia Due to Strep Due to Staph Due to E. Coli Other bacteria (specify) Healthcare Acquired Pneumonia/Pneumonia, unspecified Unable to determine Please document in your progress notes and discharge summary in order to capture severity of illness and risk of mortality. Include clinical findings that support your diagnosis. FYI: Press F11 to launch patient chart. ___x__ Place X here if this finding has no clinical significance, is not applicable or if you are not able to provide any additional documentation. Please give to dr silviano MASSEY
--- NOTE | 2016-09-19 11:40 | CDI ---
In responding to this query, please exercise your independent professional judgment. The [facility] Coding Staff and Clinical Documentation Specialists appreciate your assistance in clarifying documentation, maintaining compliance with coding guidelines, accurately documenting patients condition and capturing severity of illness. The fact that a question is asked does not imply that any particular answer is desired or expected. Communication forms are a method of clarifying documentation and are not made part of the Legal Health Record. Thank you in advance for your clarification. Last Revision, June 2015 David Hauser [address] [facility] [place] [address] Documentation Clarification Form Date: 09/19/2016 11:30:00 AM From: Kenn Mitchell, RN, BSN, CDI Admit Date: 09/16/2016 7:55:00 PM Patient Name: Pj Hein Visit Number: [id number] Dr. Kinjal Parham: Patient presents with a BUN/CR/GFR of: 97/2.34/28 History/Risk Factors: 71 yo male with hx of HTN, hyperlipidemia and skin cancer presents with c/o worsening SOB and cough. He fell off a ladder 9 days ago and sustained multiple rib fractures on the right side. His family notes that has been more somnolent and confused at times. He c/o right sided chest wall pain. Patients baseline BUN/CR/GFR: unknown, no documented history of chronic renal failure Clinical Indicators: BUN: 97->99->65 Cr: 2.34->2.87->2.15->1.30 GFR: 28->22->31->55 Ma.8, Na: 129, Chl: 91, Co2: 16 UA: cloudy, yellow, trace protein, WBC: 13, hyaline casts: 4 Treatment: IVF: IVF @100c/hr Other: daily Cr/lytes In order to capture the severity of condition, please clarify if the condition signifies: Acute renal failure Please specify (if known): Cortical, Medullary, or Tubular Necrosis? Acute on chronic renal failure Chronic renal failure, please stage Chronic kidney disease (CKD) and please stage Stage 1 GFR >90 Stage 2 GFR 60-89 Stage 3 GFR 30-59 Stage 4 GFR 15-29 Unable to determine Other, specify Please document in your progress notes and discharge summary in order to capture severity of illness and risk of mortality. Include clinical findings that support your diagnosis. FYI: Press F11 to launch patient chart. __x__ Place X here if this finding has no clinical significance, is not applicable or if you are not able to provide any additional documentation. Please give to dr silviano MASSEY
[2016-09-19] MEDS ORDERED: LEVOFLOXACIN 750MG-D5W PMX 750 MG in DEXTROSE/WATER 1 150ML.BAG IVPB SCH (12:00)
--- NOTE | 2016-09-19 12:51 | PN ---
Mr. Hein is a 71-year-old male with a past medical history of hypertension, hyperlipidemia, basal cell cancer of the skin, coming into the hospital with a chief complaint of difficulty in breathing and cough. The patient had a fall on 09/08/16 and had had multiple fractured ribs on the right side. The patient was in rehab a few days and after that, the patient was reported to be more somnolent and confused so brought into the hospital for further evaluation. The patient also had diarrhea, but tested negative for C. difficile. The patient was having some mild abdominal distention since yesterday that has been getting worse . The patient had an abdominal x-ray showing ileus. An NG tube was placed this morning. REVIEW OF SYSTEMS: CONSTITUTIONAL: Patient complaints of generalized weakness. CARDIAC: Positive for right-sided chest pain and due to multiple fractures. RESPIRATORY: Mild cough. GI: Abdominal distention. He is passing gas and also had episodes of diarrhea. The patient's medications have been reviewed. He is on DuoNeb, Norvasc, vitamin C, Lipitor, vitamin D3 Valium, Lovenox, Flonase, Dilaudid, Zestril Motrin, Levofloxacin, lisinopril, Zosyn, Vitamin B complex. The patient's vital signs temperature 96.9, heart rate 88, respirations 18, blood pressure 154/69 saturating at 94% on room air. GENERAL EXAMINATION: Elderly male appears to be discomfort due to abdominal distention. HEAD: Atraumatic, normocephalic. EYES: Pupils, round, and reactive to light. NECK: No JVD. No thyromegaly. CARDIOVASCULAR: S1, S2 heard. LUNGS: Coarse breath sounds in all lung kirk. No wheezes. ABDOMEN: Distended, but no tenderness or rigidity. Bowel sounds are hypoactive. On examination of the back, he has ( ) from the mid thoracic level up to the ( ) on the right side. EXTREMITIES: No edema, but hyperpigmentation bilaterally. CENTRAL NERVOUS SYSTEM: Alert, awake, oriented times 3, but slow to respond. No facial asymmetry. PSYCHIATRIC: Appropriate mood and affect. Patient's labs: White count of 4.4, hemoglobin is 11.9, platelets of 192, sodium 133, potassium 3.2, chloride 9, bicarb 18, BUN 99, creatinine 2.15. ASSESSMENT: 1. Shortness of breath which is multifactorial, A) bilateral pulmonary infiltrates, B) indeterminate probability for PE. 2. Acute kidney injury. 3. Hyponatremia. 4. Multiple right sided rib fractures. 5. Hypertension. 6. Hyperlipidemia. 7. Abdominal distention secondary to ileus. 8. History of basal cell cancer. PLAN: The plan is to continue the patient on Zosyn and Levaquin for infiltrates. Continue with Lovenox for intermediate probability for pulmonary embolism. Continue with IV fluids for his acute kidney injury. Surgical consult was placed for his abdominal distention. The treatment care plan was discussed in detail with the patient's and son who are at the bedside and further recommendations depending on the progress of the patient.
--- NOTE | 2016-09-19 14:57 | P.PN ---
Subjective Patient is a 71-year-old gentleman with history of hypertension and hyperlipidemia who presented to the emergency room with complaints of increasing shortness of breath. Of significance is the fact that the patient had fallen approximately 9 days prior and had multiple rib fractures on the right side. He will been transferred to [place] to be admitted in the surgical intensive care unit and was discharged approximately 5 days ago. Since discharge the patient has had increasing abdominal distention which is contributed to shortness of breath. The patient upon admission underwent a chest x-ray revealed right lower lobe infiltrate and right pleural effusion. Patient also has abdominal distention and an NG tube was placed. KUB performed on 09/17 showed findings suggestive of ileus. This patient was also found to be in acute kidney injury with a creatinine of 2.8. The patient was started on IV fluids in the creatinine is improving is currently down to 1.3. The patient was covered with broad-spectrum antibiotics with a combination of Zosyn and Levaquin. The chest x-ray from 09/19/2016 is showing improvement in the right- sided pleural effusion and infiltration. There is improvement in the aeration of the right lung. On 09/19/2016 I'm seeing Mr. Hein in follow-up. He is doing better. The NG tube has been removed. He is passing some gas omphalitis which is a good news. His abdomen is less distended. His renal function is improving and his creatinine is down to 1.3. His pain is under good control for now. No change in mental status. Objective - Vital Signs Vital signs: Vital Signs Temp 96.9 F L 09/19/16 11:56 Pulse 81 09/19/16 11:56 Resp 20 09/19/16 11:57 BP 112/59 09/19/16 11:56 Pulse Ox 95 09/19/16 11:56 Intake & Output 09/18/16 09/19/16 09/19/16 18:59 06:59 18:59 Intake Total 350 Balance 350 Weight 82.4 kg Intake: Intake, IV Titration 350 Amount Levofloxacin 250Mg-D5w 250 Pmx 250 mg In Dextrose/ Water 1 50ml.bag @ 50 mls /hr IVPB Q24H [facility] Rx#: [id number] Levofloxacin 750Mg-D5w 50 Pmx 750 mg In Dextrose/ Water 1 150ml.bag @ 100 mls/hr IVPB Q48H [facility] Rx#: [id number] Piperacillin-Tazobactam 3 50 .375 gm In Dextrose/Water 1 50ml.bag @ 12.5 mls/hr IVPB Q8H [facility] Rx#: [id number] Other: Voiding Method Urinal Urinal # Voids 0 1 1 # Bowel Movements 0 1 - Exam Head exam was generally normal. There was no scleral icterus or corneal arcus. Mucous membranes were moist.Neck was supple and without jugular venous distension, thyromegaly, or carotid bruits. Carotids were easily palpable bilaterally. There was no adenopathy. Lung sounds are diminished bilaterally especially in the right lung base. There is some soreness upon palpating the right lateral chest area.Cardiac exam revealed the PMI to be normally situated and sized. The rhythm was regular and no extrasystoles were noted during several minutes of auscultation. The first and second heart sounds were normal and physiologic splitting of the second heart sound was noted. There were no murmurs, rubs, clicks, or gallops. Abdomen is less distended. The bowel sounds are still hypoactive. No direct tenderness. No rebound no guarding.Examination of the extremities revealed easily palpable radial, femoral and pedal pulses. There was no cyanosis, clubbing or edema. - Labs CBC & Chem 7: 09/19/16 06:12 09/19/16 06:12 Labs: Abnormal Lab Results - Last 24 Hours (Table) 09/19/16 09/19/16 Range/Units 06:12 06:12 RBC 3.84 L (4.30-5.90) m/uL Hgb 11.9 L (13.0-17.5) gm/dL Hct 35.9 L (39.0-53.0) % Lymphocytes # 0.8 L (1.0-4.8) k/uL Chloride 108 H (98-107) mmol/L Carbon Dioxide 15 L (22-30) mmol/L BUN 65 H (9-20) mg/dL Creatinine 1.30 H (0.66-1.25) mg/dL Assessment and Plan Plan: Assessment 1 right-sided chest wall pain secondary of fall, multiple right-sided rib fractures, at least 8 of them primary sent traumatic fall off the ladder. 2 acute kidney injury probably secondary to intravascular volume depletion and intake of Motrin 3 ileus requiring an NG tube insertion for abdominal inflation. This ileus was probably due to intake of narcotic medication specifically Dilaudid 4 right lung contusion secondary to fall 5 fall of the ladder. 6 small right-sided pleural effusion, pneumonia is doubtful at this stage 7 hypertension 8 hyperlipidemia Plan Continue using incentive spirometer very frequently. We'll keep the antibiotics for another 24 hours and start weaning as of tomorrow. Stop the Motrin completely. Suggest replacing Dilaudid with [place] on outpatient basis and potentially his ileus may become better with that. When asked the patient to ambulate as much as possible and the hospital and the hallway and this should help him with his ileus. Gradually introduce diet, clear liquids initially and then advanced as tolerated. Repeat chest x-ray with the next 24 hours to monitor the right-sided pulmonary contusion. Drop the Lovenox dose to 40 mg subcu every 24 hours for prophylaxis. We'll continue to follow.
--- NOTE | 2016-09-19 15:06 | XR ---
EXAMINATION TYPE: XR chest 2V DATE OF EXAM: 09/19/2016 1:08 PM COMPARISON: 09/18/2016 HISTORY: Shortness of breath FINDINGS: NG tube noted with bilateral infiltrate and small effusion. Multiple right-sided rib fractures seen w ith no pneumothorax. Heart is stable. Atherosclerotic change aorta. There are dilated bowel loops in the upper abdomen. IMPRESSION: 1. Bilateral infiltrate and small effusion. 2. Dilated bowel loops in the upper abdomen persist with NG tube noted in position.
[2016-09-19] MEDS: B COMPLEX-VIT C-VIT E-ZINC 1 EACH TAB PO SCH (15:08)
[2016-09-19] MEDS: CHOLECALCIFEROL 1,000 UNIT TAB PO SCH (15:08)
[2016-09-19] MEDS: ASCORBIC ACID 500 MG TAB PO SCH (15:08)
[2016-09-19] MEDS: LISINOPRIL 20 MG TAB PO SCH (15:08)
[2016-09-19] MEDS ORDERED: HYDROcodone/APAP 10-325MG 1 EACH TAB PO PRN (16:16)
[2016-09-19] MEDS: LEVOFLOXACIN 250MG-D5W PMX 250 MG in DEXTROSE/WATER 1 50ML.BAG IVPB SCH (16:59)
[2016-09-19] MEDS: ATORVASTATIN 20 MG TAB PO SCH (20:27)
[2016-09-19] MEDS: SODIUM CHLORIDE 0.9% 1,000 ML IV SCH ×2 (20:27→20:28)
--- NOTE | 2016-09-20 06:53 | CDI ---
[facility] [address] [facility] [place] [address] Documentation Clarification Form Date: 09/19/2016 11:10:00 AM From: Kenn Mitchell RN, BSN, CDS Admit Date: 09/16/2016 7:55:00 PM Patient Name: Pj Hein Visit Number: [id number] Dr. Dai Villarreal: Pneumonia was documented in the pulmonary consult and surgical consult History/Risk Factors: 71 yo male presents with c/o worsening SOB and cough. He fell 9 days ago off a ladder and sustained multiple right sided rib fractures. [facility] and was discharged 4 days ago, after a 4 day stay. He c/o right sided chest wall pain. He has a history of hyperlipidemia, HTN and skin cancer Clinical Indicators: WBC: 5.2 Chest X-ray: b/l basilar pulmonary infiltrates and atelectasis Initial VS (on admit): 112/57, 91, 18, 100.1, 93% 2L NC Lung/Breathing assessment: rales @ b/l bases, rhonchi, right chest wall tenderness and ecchymosis Treatment: Antibiotics: Vanco x1 dose, Zosyn, Levaquin O2 @2L NC Breathing Tx: duonebs In order to capture the severity of condition, please clarify if the condition signifies and you are treating for: Bacterial Pneumonia, specify causal organism (if known) Gram Negative Pneumonia X Due to Strep Due to Staph Due to E. Coli Other bacteria (specify) Healthcare Acquired Pneumonia/Pneumonia, unspecified Unable to determine Please document in your progress notes and discharge summary in order to capture severity of illness and risk of mortality. Include clinical findings that support your diagnosis. FYI: Press F11 to launch patient chart. Place X here if this finding has no clinical significance, is not applicable or if you are not able to provide any additional documentation. MICHAELD
--- NOTE | 2016-09-20 06:55 | CDI ---
[facility] [place] [address] [place] [address] Documentation Clarification Form Date: 09/19/2016 11:30:00 AM From: Kenn Mitchell RN, BSN, CDI Admit Date: 09/16/2016 7:55:00 PM Patient Name: Pj Hein Visit Number: [id number] Dr. Dai Villarreal: Patient presents with a BUN/CR/GFR of: 97/2.34/28 History/Risk Factors: 71 yo male with hx of HTN, hyperlipidemia and skin cancer presents with c/o worsening SOB and cough. He fell off a ladder 9 days ago and sustained multiple rib fractures on the right side. His family notes that has been more somnolent and confused at times. He c/o right sided chest wall pain. Patients baseline BUN/CR/GFR: unknown, no documented history of chronic renal failure Clinical Indicators: BUN: 97->99->65 Cr: 2.34->2.87->2.15->1.30 GFR: 28->22->31->55 Ma.8, Na: 129, Chl: 91, Co2: 16 UA: cloudy, yellow, trace protein, WBC: 13, hyaline casts: 4 Treatment: IVF: IVF @100c/hr Other: daily Cr/lytes In order to capture the severity of condition, please clarify if the condition signifies: Acute renal failure Please specify (if known): Cortical, Medullary, or Tubular Necrosis? Acute kidney injury Acute on chronic renal failure Chronic renal failure, please stage Chronic kidney disease (CKD) and please stage Stage 1 GFR >90 Stage 2 GFR 60-89 X Stage 3 GFR 30-59 Stage 4 GFR 15-29 Unable to determine Other, specify Please document in your progress notes and discharge summary in order to capture severity of illness and risk of mortality. Include clinical findings that support your diagnosis. FYI: Press F11 to launch patient chart. Place X here if this finding has no clinical significance, is not applicable or if you are not able to provide any additional documentation. MICHAELD
[2016-09-20] MEDS: PIPERACILLIN-TAZOBACTAM 3.375 GM in DEXTROSE/WATER 1 50ML.BAG IVPB SCH (07:14)
--- NOTE | 2016-09-20 07:26 | PN ---
INTERVAL HISTORY: Mr. Hein is a 71-year-old male with past clinical history of hypertension, hyperlipidemia, basal cell cancer of the skin, coming in to the hospital with the chief complaint of difficulty in breathing and cough. The patient had a recent fall on 09/18/2016 and had multiple fractured ribs on the right side. He was in the hospital for a few days and then sent home, but after the patient was more somnolent and confused and so brought into the hospital for further evaluation. Patient also had a couple of episodes of diarrhea, but tested negative for C. diff. Patient is currently being treated for pneumonia and renal failure. He states that he feels much better than yesterday. His abdominal distention resolved to some extent. Patient is passing gas but did not have a bowel movement yet. REVIEW OF SYSTEMS: CONSTITUTIONAL: The patient complains of generalized weakness. CARDIAC: No chest pain but pain from the right side wall due to multiple rib fractures. CHEST: Positive for mild cough. GI: Positive for abdominal distention but no diarrhea. Patient's medications have been reviewed - [place], DuoNeb, Norvasc, vitamin C, Lipitor, vitamin D3, Valium, Lovenox, Vistaril, levofloxacin, Zosyn and vitamin supplements. On examination, patient's vital signs temperature 97.4, heart rate 82, respiratory rate 18, blood pressure 144/66, saturating at 94% on room air. GENERAL EXAMINATION: Patient appears to be in no acute distress, looks much more brighter than compared to yesterday. HEAD: Atraumatic, normocephalic. Pupils round and reactive to light. NECK: No JVD, no thyromegaly. CARDIAC: S1, S2 heard. LUNGS: Coarse breath sounds in all lung kirk. No wheeze. ABDOMEN: is distended, less distended than yesterday, no tenderness or rigidity. Bowel sounds are hypoactive. EXTREMITIES: No edema. Hyperpigmentation bilaterally. SCREEN EXAMINER: Awake, alert and oriented x3, no facial asymmetry. PSYCHIATRIC: Appropriate mood and affect. PATIENT'S LABS: White count is 6.2, hemoglobin is 11.9, platelets of 232, sodium 139, potassium 3.5, carbon dioxide of 15, BUN of 65, creatinine 1.30/ ASSESSMENT AND PLAN: 1. Bilateral pulmonary infiltrates, pneumonia,. 2. Acute kidney injury, most likely secondary to acute tubular necrosis. 3. V/Q scan has indeterminate probability of pulmonary embolism. 4. Multiple right rib fractures. 5. Hypertension. 6. Hyperlipidemia. 7. Abdominal distention secondary to ileus. 8. History of basal cell cancer, status post removal. 9. Chronic kidney disease stage III. PLAN: The plan is to continue the patient on antibiotics . Pulmonary on board and advised at the lower dose of Lovenox. Patient's Dilaudid has been changed to [place] as the patient has ileus. Patient with IV fluids. However, patient showed significant improvement with the current medication regimen. He will continue with it and further recommendations to follow depending on the progress of the patient. The treatment care plan was discussed with the patient's son and who are at bedside. BRYSON
[2016-09-20] MEDS: IPRATROPIUM-ALBUTEROL 3 ML NEB INHALATION SCH ×4 (08:02→19:47)
--- NOTE | 2016-09-20 08:16 | XR ---
EXAMINATION TYPE: XR chest 2V DATE OF EXAM: 09/20/2016 7:59 AM COMPARISON: 09/19/2016 HISTORY: Pulmonary contusion FINDINGS: Numerous right-sided rib fractures are seen with right-sided consolidation and pleural effusion. Left lung clear. Heart size stable. IMPRESSION: 1. Stable basilar consolidation and pleural effusion unchanged from previous exam. 2. Numerous right-sided rib fractures
--- NOTE | 2016-09-20 08:20 | XR ---
EXAMINATION TYPE: XR abdomen 1V DATE OF EXAM: 09/20/2016 7:59 AM COMPARISON: 09/18/2016 HISTORY: Abdominal distention FINDINGS: There are persistent dilated small bowel loops and air-fluid levels. Numerous right-sided rib fractur es with right-sided consolidation and pleural effusion noted. Correlate for hemothorax. Arthropathy of the hips noted. 4 mm calcification overlying the left kidney suggestive of renal stone . IMPRESSION: 1. Persistent air-fluid levels are markedly dilated bowel loops correlate for partial obstruction or severe ileus. 2. 4 mm left renal stone 3. Multiple right-sided rib fractures with basilar consolidation and pleural effusion.
[2016-09-20] MEDS ORDERED: POTASSIUM CHLORIDE 10 MEQ in WATER FOR INJECTION 1 100ML.BAG IVPB SCH (08:45)
[2016-09-20] MEDS: CHOLECALCIFEROL 1,000 UNIT TAB PO SCH (08:48)
[2016-09-20] MEDS: ENOXAPARIN 40 MG/0.4 ML SYRINGE SQ SCH (08:48)
[2016-09-20] MEDS: LISINOPRIL 20 MG TAB PO SCH (08:49)
[2016-09-20] MEDS: ASCORBIC ACID 500 MG TAB PO SCH (08:49)
[2016-09-20] MEDS ORDERED: POTASSIUM CHLORIDE 10 MEQ, LIDOCAINE 2% INJ 10 MG in SODIUM CHLORIDE 0.9% 100 ML IV SCH (09:00)
[2016-09-20] MEDS ORDERED: ACETAMINOPHEN TAB 325 MG TAB PO PRN (10:31)
[2016-09-20 11:14] LABS: Anion Gap 15 mmol/L; Blood Urea Nitrogen 20 mg/dL (9-20); Calcium 8.6 mg/dL (8.4-10.2); Carbon Dioxide 19 mmol/L (22-30); Chloride 114 mmol/L (98-107); Glucose 111 mg/dL (74-99); Non-African American GFR(MDRD) >60 (>60 ml/min/1.73 sqM); Potassium 3.2 mmol/L (3.5-5.1); Sodium 148 mmol/L (137-145)
[2016-09-20] MEDS: SODIUM CHLORIDE 0.9% 1,000 ML IV SCH (12:17)
[2016-09-20] MEDS: B COMPLEX-VIT C-VIT E-ZINC 1 EACH TAB PO SCH (12:17)
[2016-09-20] MEDS: amLODIPine 10 MG TAB PO SCH (12:17)
[2016-09-20] MEDS: SODIUM CHLORIDE 0.45% 1,000 ML IV SCH (12:33)
[2016-09-20] MEDS: POTASSIUM CHLORIDE ER 20 MEQ TAB.ER PO SCH ×5 (12:41→22:31)
--- NOTE | 2016-09-20 12:51 | P.PN ---
Subjective Patient is a 71-year-old gentleman with history of hypertension and hyperlipidemia who presented to the emergency room with complaints of increasing shortness of breath. Of significance is the fact that the patient had fallen approximately 9 days prior and had multiple rib fractures on the right side. He will been transferred to [place] to be admitted in the surgical intensive care unit and was discharged approximately 5 days ago. Since discharge the patient has had increasing abdominal distention which is contributed to shortness of breath. The patient upon admission underwent a chest x-ray revealed right lower lobe infiltrate and right pleural effusion. Patient also has abdominal distention and an NG tube was placed. KUB performed on 09/17 showed findings suggestive of ileus. This patient was also found to be in acute kidney injury with a creatinine of 2.8. The patient was started on IV fluids in the creatinine is improving is currently down to 1.3. The patient was covered with broad-spectrum antibiotics with a combination of Zosyn and Levaquin. The chest x-ray from 09/19/2016 is showing improvement in the right- sided pleural effusion and infiltration. There is improvement in the aeration of the right lung. On 09/19/2016 I'm seeing Mr. Hein in follow-up. He is doing better. The NG tube has been removed. He is passing some gas omphalitis which is a good news. His abdomen is less distended. His renal function is improving and his creatinine is down to 1.3. His pain is under good control for now. No change in mental status. 09/20/2016 the patient is doing much better. His ileus has resolved and the patient is off the NG tube. We will start the patient on some soft diet. Also the patient is not having any pain in his right chest. He opted to use only Tylenol instead of no code oral Dilaudid. I think this is related as long as he has seen significant side effects from the narcotic medications specifically developing ileus and some alteration in his mental status. At the same time, the patient's renal function is improving and creatinine is completely normalized. We will avoid taking the Motrin. The chest x-ray from today shows a small right-sided pleural effusion. There are at least 8 rib fractures on the right side. No clinical evidence of any flail chest Objective - Vital Signs Vital signs: Vital Signs Temp 96.7 F L 09/20/16 11:41 Pulse 89 01/31/17 11:41 Resp 16 09/20/16 11:41 BP 148/68 09/20/16 11:41 Pulse Ox 97 09/20/16 11:41 Intake & Output 09/19/16 09/20/16 09/20/16 18:59 06:59 18:59 Intake Total 1300 Balance 1300 Weight 82.4 kg Intake: Intake, IV Titration 1300 Amount Levofloxacin 250Mg-D5w 50 Pmx 250 mg In Dextrose/ Water 1 50ml.bag @ 50 mls /hr IVPB Q24H [facility] Rx#: [id number] Piperacillin-Tazobactam 3 50 .375 gm In Dextrose/Water 1 50ml.bag @ 12.5 mls/hr IVPB Q8H [facility] Rx#: [id number] Sodium Chloride 0.9% 1, 1200 000 ml @ 100 mls/hr IV . Q10H [facility] Rx#:[id number] Other: Voiding Method Urinal Toilet Urinal # Voids 1 1 1 - Exam Head exam was generally normal. There was no scleral icterus or corneal arcus. Mucous membranes were moist.Neck was supple and without jugular venous distension, thyromegaly, or carotid bruits. Carotids were easily palpable bilaterally. There was no adenopathy. Lung sounds are diminished bilaterally especially in the right lung base. There is some soreness upon palpating the right lateral chest area.Cardiac exam revealed the PMI to be normally situated and sized. The rhythm was regular and no extrasystoles were noted during several minutes of auscultation. The first and second heart sounds were normal and physiologic splitting of the second heart sound was noted. There were no murmurs, rubs, clicks, or gallops. Abdomen is less distended. The bowel sounds are still hypoactive. No direct tenderness. No rebound no guarding.Examination of the extremities revealed easily palpable radial, femoral and pedal pulses. There was no cyanosis, clubbing or edema. - Labs CBC & Chem 7: 09/19/16 06:12 09/20/16 10:47 Labs: Abnormal Lab Results - Last 24 Hours (Table) 09/20/16 Range/Units 10:47 Sodium 148 H (137-145) mmol/L Potassium 3.2 L (3.5-5.1) mmol/L Chloride 114 H (98-107) mmol/L Carbon Dioxide 19 L (22-30) mmol/L Glucose 111 H (74-99) mg/dL Assessment and Plan Plan: Assessment 1 right-sided chest wall pain secondary of fall, multiple right-sided rib fractures, at least 8 ribs fractured due to traumatic fall off the ladder. On today's evaluation of 09/20/2016, the patient has no significant pain in his right chest and the patient will use Tylenol for pain control 2 acute kidney injury probably secondary to intravascular volume depletion and intake of Motrin, completely recovered and the patient's renal function is back to normal 3 ileus requiring an NG tube insertion for abdominal inflation. This ileus was probably due to intake of narcotic medication specifically Dilaudid. The ileus has completely recovered and the patient will be started on some soft diet. The patient is not utilizing any narcotic medications. 4 right lung contusion secondary to fall, and there is a small right-sided pleural effusion 5 fall of the ladder. 6 small right-sided pleural effusion, pneumonia is doubtful at this stage 7 hypertension 8 hyperlipidemia Plan Continue using incentive spirometer very frequently. Avoid narcotic medications. Avoid nonsteroidal anti-inflammatory medication. Use Tylenol for pain control. Monitor the right-sided pleural effusion. Advance diet as tolerated. Ablate in the hallway. We'll continue to follow. Condition is stable for now.
[2016-09-20 13:39] VITALS: BMI 26.0
--- NOTE | 2016-09-20 15:08 | P.PN ---
Subjective 71-year-old woman being seen on rounds with the attending. Patient currently is sitting up in a chair family at the bedside patient reports abdominal discomfort has improved denying any shortness of breath. Patient states passing gas and has had stools. Nasogastric tube was removed yesterday. Patient was started on a clear liquid diet and as tolerating. Patients being followed by surgical service the request of the attending for increased abdominal pain shortness of breath likely due to an ileus which is slowly resolving Objective - Vital Signs Vital signs: Vital Signs Temp 96.7 F L 09/20/16 11:41 Pulse 89 09/20/16 11:41 Resp 16 09/20/16 11:41 BP 148/68 09/20/16 11:41 Pulse Ox 97 09/20/16 11:41 Intake & Output 09/19/16 09/20/16 09/20/16 18:59 06:59 18:59 Intake Total 1300 Balance 1300 Weight 82.4 kg 82.4 kg Intake: Intake, IV Titration 1300 Amount Levofloxacin 250Mg-D5w 50 Pmx 250 mg In Dextrose/ Water 1 50ml.bag @ 50 mls /hr IVPB Q24H [facility] Rx#: [id number] Piperacillin-Tazobactam 3 50 .375 gm In Dextrose/Water 1 50ml.bag @ 12.5 mls/hr IVPB Q8H [facility] Rx#: [id number] Sodium Chloride 0.9% 1, 1200 000 ml @ 100 mls/hr IV . Q10H [facility] Rx#:[id number] Other: Voiding Method Urinal Toilet Urinal # Voids 1 1 1 - Exam Physical exam 71-year-old gentleman sitting up in a chair being seen with the surgeon at the bedside states feeling much better less abdominal pain no shortness of breath passing gas Lungs essentially clear with adequate air movement sats are 97% on room air Heart S1-S2 audible regular Abdomen soft less distended hypoactive bowel tones urinating no difficulty states passing gas no nausea no vomiting states had one watery stool this morning Extremities no edema noted - Labs CBC & Chem 7: 09/19/16 06:12 09/20/16 10:47 Labs: Abnormal Lab Results - Last 24 Hours (Table) 09/20/16 Range/Units 10:47 Sodium 148 H (137-145) mmol/L Potassium 3.2 L (3.5-5.1) mmol/L Chloride 114 H (98-107) mmol/L Carbon Dioxide 19 L (22-30) mmol/L Glucose 111 H (74-99) mg/dL Assessment and Plan Plan: Impression Status post fall from a ladder sustaining multiple rib fractures on the right Chest x-ray suggests right lower lobe pneumonia Present on admission abdominal distention suspect likely due to an severe ileus or partial bowel obstruction Present on admission acute renal failure resolving likely due to volume depletion Plan Increase activity Start clear liquid diet Repeat abdominal x-ray in the morning Increase activity Further surgical recommendations pending will follow The above dictated assessment and findings were discussed with dr Ankit Connor Impression and the plan of care have been dictated as directed. Renuka Unger nurse practitioner acting as a scribe for Elvis
--- NOTE | 2016-09-20 18:45 | PN ---
Patient is admitted secondary to a fall and a fracture. Patient has contusions. I do not see any clear-cut evidence of pneumonia at this point of time, because of which I am changing his antibiotics to Augmentin oral and discontinuing Zosyn and levofloxacin. Patient was having episodes of diarrhea with negative C difficile. Abdominal x-ray did not show any improvement in his ileus; patient actually came in with abdominal distention and shortness of breath secondary to that. I will leave the decision of advancing the diet to Surgical Services as of now. I will switch the fluids to half normal saline because of hyperchloremia and hypernatremia. REVIEW OF SYSTEMS: CARDIOVASCULAR: No chest pain, no orthopnea, no PND, no palpitations. PULMONARY: Denied any shortness of breath. No cough or hemoptysis. GASTROINTESTINAL: Multiple episodes of diarrhea. Patient has good bowel sounds. NEUROLOGIC: No headaches, no weakness, no numbness. Medications were reviewed. Medication changes as mentioned in the interval history. PHYSICAL EXAMINATION: VITAL SIGNS: Temperature 96.7, pulse of 80, respiratory rate of 16. Blood pressure is 148/68. Saturating at 97% on room air. GENERAL: The patient is alert and oriented x3, not in any acute distress. Well developed, well nourished. HEENT: Pupils are round and equally reacting to light. EOMI. No scleral icterus. No conjunctival pallor. Normocephalic, atraumatic. No pharyngeal erythema. No thyromegaly. CARDIOVASCULAR: S1 and S2 present. No murmurs, rubs, or gallops. PULMONARY: Crackles were heard, mostly in the left lower lung bases. No wheezing was heard. Breath sounds were present bilaterally. ABDOMEN: Bowel sounds are present. Abdomen is still distended; tympanic in nature. MUSCULOSKELETAL: No joint swelling or deformity. EXTREMITIES: No cyanosis, clubbing, or pedal edema. NEUROLOGICAL: Gross neurological examination did not reveal any focal deficits. SKIN: No rashes. LABORATORY DATA: Basic metabolic profile is abnormal for low potassium of 3.2, which will be supplemented. Hyperchloremia and hypernatremia and low bicarbonate secondary to hyperchloremia. IV fluid management as mentioned above. ASSESSMENT AND PLAN: 1. Rib fractures with pulmonary contusion. No clear-cut evidence of pneumonic process at this point of time. 2. Ileus. 3. Acute renal failure, which improved. 4. Hypertension. 5. Hyperlipidemia. PLAN: As mentioned in interval history.
[2016-09-20] MEDS ORDERED: Potassium Replacement Protocol 1 EACH MISC MISCELLANE PRN (19:27)
[2016-09-20] MEDS: ATORVASTATIN 20 MG TAB PO SCH (19:46)
[2016-09-20] MEDS: AMOXIC-POT CLAV 875-125MG 1 EACH TAB PO SCH (19:47)
[2016-09-21 03:25] LABS: Anion Gap 11 mmol/L; Blood Urea Nitrogen 13 mg/dL (9-20); Calcium 8.8 mg/dL (8.4-10.2); Carbon Dioxide 22 mmol/L (22-30); Chloride 113 mmol/L (98-107); Glucose 131 mg/dL (74-99); Non-African American GFR(MDRD) >60 (>60 ml/min/1.73 sqM); Potassium 3.4 mmol/L (3.5-5.1); Sodium 146 mmol/L (137-145)
[2016-09-21 03:45] LABS: CH 32.7; CHCM 35.8; HCT 33.8 % (39.0-53.0); HGB 11.7 gm/dL (13.0-17.5); MCH 31.9 pg (25.0-35.0); MCHC 34.7 g/dL (31.0-37.0); Mean Platelet Volume 8.2; RBC 3.67 m/uL (4.30-5.90); RDW 13.1 % (11.5-15.5); WBC 6.2 k/uL (3.8-10.6)
[2016-09-21] MEDS: SODIUM CHLORIDE 0.45% 1,000 ML IV SCH ×2 (05:48→12:44)
[2016-09-21] MEDS ORDERED: Potassium Replacement Protocol 1 EACH MISC MISCELLANE PRN (05:50)
[2016-09-21] MEDS: POTASSIUM CHLORIDE ER 20 MEQ TAB.ER PO SCH ×2 (06:43→08:41)
[2016-09-21] MEDS: IPRATROPIUM-ALBUTEROL 3 ML NEB INHALATION SCH ×2 (08:01→11:54)
--- NOTE | 2016-09-21 08:20 | XR ---
EXAMINATION TYPE: XR abdomen 1V DATE OF EXAM: 09/21/2016 8:00 AM CLINICAL HISTORY: Ileus progress study TECHNIQUE: 2 upright KUB images of the abdomen are obtained. COMPARISON: Abdominal x-ray from yesterday. Older x-ray from 3 [address] cap September 08. FINDINGS: Gas dilated bowel predominantly colonic loops with air-fluid levels are redemonstrated. Gas is seen a slightly prominent rectum. No significant change in degree of gaseous distention from one day earlier. Small right pleural effusion is redemonstrated with right medial basilar consolidation with air bronc hogram. No pneumoperitoneum is seen. There is redemonstration of 5 mm left renal calculus. Multiple r ight sided displaced rib fractures are redemonstrated. IMPRESSION: Overall nonspecific bowel gas pattern, do favor ileus given predominant colonic involvem ent.
[2016-09-21 08:40] VITALS: RESP 20
[2016-09-21] MEDS: LISINOPRIL 20 MG TAB PO SCH (08:41)
[2016-09-21] MEDS: ENOXAPARIN 40 MG/0.4 ML SYRINGE SQ SCH (08:41)
[2016-09-21] MEDS: AMOXIC-POT CLAV 875-125MG 1 EACH TAB PO SCH (08:41)
[2016-09-21] MEDS: CHOLECALCIFEROL 1,000 UNIT TAB PO SCH (08:42)
[2016-09-21] MEDS: amLODIPine 10 MG TAB PO SCH (08:42)
[2016-09-21] MEDS: ASCORBIC ACID 500 MG TAB PO SCH (08:42)
[2016-09-21 12:06] VITALS: PULSE 80
[2016-09-21 12:21] VITALS: BP 142/72; TEMP 96.8
[2016-09-21] MEDS: B COMPLEX-VIT C-VIT E-ZINC 1 EACH TAB PO SCH (12:44)
--- NOTE | 2016-09-21 13:28 | P.PN ---
Subjective 8-year-old male being seen by Dr. Connor surgical service currently patient is sitting up in a chair. Patient states is tolerating a diet there is less abdominal pain and is anxious to be discharged home. Patient did have a repeat abdominal x-ray this morning. Does show the multiple right side displaced rib fractures. Nonspecific bowel gas pattern. Patient states is tolerating a diet and has had a bowel movement surgical service did discuss with the patient patient would need a colonoscopy in the outpatient setting this could be arranged after seen Dr. Connor in the office next week family at the bedside verbalized an understanding Objective - Vital Signs Vital signs: Vital Signs Temp 96.8 F L 09/21/16 12:00 Pulse 80 09/21/16 12:05 Resp 20 09/21/16 12:00 BP 142/72 09/21/16 12:00 Pulse Ox 97 09/21/16 12:00 Intake & Output 09/20/16 09/21/16 09/21/16 18:59 06:59 18:59 Intake Total 222 525 600 Output Total 1 Balance 222 525 599 Weight 82.4 kg 82.3 kg Intake: Intake, IV Titration 525 600 Amount Sodium Chloride 0.45% 1, 525 600 000 ml @ 75 mls/hr IV . [id number] [facility] Rx#:[id number] Oral 222 Output: Urine/Stool Mix 1 Other: Voiding Method Toilet Toilet Toilet Urinal Urinal Urinal # Voids 3 2 # Bowel Movements 1 - Exam Physical exam 71-year-old male sitting up in a chair appears in no acute distress pleasant cooperative alert Lungs essentially clear on room air Heart S1-S2 audible regular Abdomen soft tolerating diet no reports of nausea vomiting states had 1 stool last evening urinating no difficulty Extremities no edema - Labs CBC & Chem 7: 09/21/16 02:57 09/21/16 10:39 Labs: Abnormal Lab Results - Last 24 Hours (Table) 09/20/16 09/21/16 09/21/16 Range/Units 18:20 02:57 02:57 RBC 3.67 L (4.30-5.90) m/uL Hgb 11.7 L (13.0-17.5) gm/dL Hct 33.8 L (39.0-53.0) % Sodium 146 H (137-145) mmol/L Potassium 2.8 L* 3.4 L (3.5-5.1) mmol/L Chloride 113 H (98-107) mmol/L Glucose 131 H (74-99) mg/dL Assessment and Plan Plan: Impression Status post fall from a ladder sustaining multiple rib fractures on the right Chest x-ray suggests right lower lobe pneumonia Present on admission abdominal distention suspect likely due to an severe ileus or partial bowel obstruction Present on admission acute renal failure resolving likely due to volume depletion Plan Surgical perspective the patient is felt to be surgically stable and appropriate proceed with a discharge defer to the timing of the discharge to the attending Patient is to follow-up with Dr. Connor in the outpatient setting to discuss the need for an colonoscopy The above dictated assessment and findings were discussed with dr Ankit Connor Impression and the plan of care have been dictated as directed. Renuka Unger nurse practitioner acting as a scribe for Elvis
--- NOTE | 2016-09-21 14:37 | P.PN ---
Subjective Patient is a 71-year-old gentleman with history of hypertension and hyperlipidemia who presented to the emergency room with complaints of increasing shortness of breath. Of significance is the fact that the patient had fallen approximately 9 days prior and had multiple rib fractures on the right side. He will been transferred to [facility] to be admitted in the surgical intensive care unit and was discharged approximately 5 days ago. Since discharge the patient has had increasing abdominal distention which is contributed to shortness of breath. The patient upon admission underwent a chest x-ray revealed right lower lobe infiltrate and right pleural effusion. Patient also has abdominal distention and an NG tube was placed. KUB performed on 09/17 showed findings suggestive of ileus. This patient was also found to be in acute kidney injury with a creatinine of 2.8. The patient was started on IV fluids in the creatinine is improving is currently down to 1.3. The patient was covered with broad-spectrum antibiotics with a combination of Zosyn and Levaquin. The chest x-ray from 09/19/2016 is showing improvement in the right- sided pleural effusion and infiltration. There is improvement in the aeration of the right lung. On 09/19/2016 I'm seeing Mr. Hein in follow-up. He is doing better. The NG tube has been removed. He is passing some gas omphalitis which is a good news. His abdomen is less distended. His renal function is improving and his creatinine is down to 1.3. His pain is under good control for now. No change in mental status. 09/20/2016 the patient is doing much better. His ileus has resolved and the patient is off the NG tube. We will start the patient on some soft diet. Also the patient is not having any pain in his right chest. He opted to use only Tylenol instead of no code oral Dilaudid. I think this is related as long as he has seen significant side effects from the narcotic medications specifically developing ileus and some alteration in his mental status. At the same time, the patient's renal function is improving and creatinine is completely normalized. We will avoid taking the Motrin. The chest x-ray from today shows a small right-sided pleural effusion. There are at least 8 rib fractures on the right side. No clinical evidence of any flail chest On 09/21/2016 the patient is still stable. He has not required any pain killers and his chest wall pain essentially under good control for now. His ileus is also recovered and the surgical team has signed off the patient. He is ambulating. I realize that he was given a VQ scan that was of intermediate probability at time of admission. Suspicion for pulmonary embolism is extremely low. The patient was placed on Lovenox 40 mg subcu for DVT prophylaxis few days back. No need for long-term anticoagulation. He is ambulating for now. No hemoptysis. No evidence of any flail chest. Multiple right-sided fractures are present. Objective - Vital Signs Vital signs: Vital Signs Temp 96.8 F L 09/21/16 12:00 Pulse 80 09/21/16 12:05 Resp 20 09/21/16 12:00 BP 142/72 09/21/16 12:00 Pulse Ox 97 09/21/16 12:00 Intake & Output 09/20/16 09/21/16 09/21/16 18:59 06:59 18:59 Intake Total 222 525 600 Output Total 1 Balance 222 525 599 Weight 82.4 kg 82.3 kg Intake: Intake, IV Titration 525 600 Amount Sodium Chloride 0.45% 1, 525 600 000 ml @ 75 mls/hr IV . [id number] [facility] Rx#:[id number] Oral 222 Output: Urine/Stool Mix 1 Other: Voiding Method Toilet Toilet Toilet Urinal Urinal Urinal # Voids 3 2 # Bowel Movements 1 - Exam Head exam was generally normal. There was no scleral icterus or corneal arcus. Mucous membranes were moist.Neck was supple and without jugular venous distension, thyromegaly, or carotid bruits. Carotids were easily palpable bilaterally. There was no adenopathy. Lung sounds are diminished bilaterally especially in the right lung base. There is some soreness upon palpating the right lateral chest area.Cardiac exam revealed the PMI to be normally situated and sized. The rhythm was regular and no extrasystoles were noted during several minutes of auscultation. The first and second heart sounds were normal and physiologic splitting of the second heart sound was noted. There were no murmurs, rubs, clicks, or gallops. Abdomen is less distended. The bowel sounds are still hypoactive. No direct tenderness. No rebound no guarding.Examination of the extremities revealed easily palpable radial, femoral and pedal pulses. There was no cyanosis, clubbing or edema. - Labs CBC & Chem 7: 09/21/16 02:57 09/21/16 10:39 Labs: Abnormal Lab Results - Last 24 Hours (Table) 09/20/16 09/21/16 09/21/16 Range/Units 18:20 02:57 02:57 RBC 3.67 L (4.30-5.90) m/uL Hgb 11.7 L (13.0-17.5) gm/dL Hct 33.8 L (39.0-53.0) % Sodium 146 H (137-145) mmol/L Potassium 2.8 L* 3.4 L (3.5-5.1) mmol/L Chloride 113 H (98-107) mmol/L Glucose 131 H (74-99) mg/dL Assessment and Plan Plan: Assessment 1 right-sided chest wall pain secondary of fall, multiple right-sided rib fractures, at least 8 ribs fractured due to traumatic fall off the ladder. On today's evaluation of 09/20/2016, the patient has no significant pain in his right chest and the patient will use Tylenol for pain control On today's evaluation of 09/21/2016, the patient remains stable. No respiratory difficulties. He is on room air. The final chest x-ray will be done prior to this patient being discharged home. 2 acute kidney injury probably secondary to intravascular volume depletion and intake of Motrin, completely recovered and the patient's renal function is back to normal 3 ileus requiring an NG tube insertion for abdominal inflation. This ileus was probably due to intake of narcotic medication specifically Dilaudid. The ileus has completely recovered and the patient will be started on some soft diet. The patient is not utilizing any narcotic medications. On today's evaluation of 09/21/2016, the ileus has recovered and the patient is stable tolerating diet and surgical team has essentially signed off. 4 right lung contusion secondary to fall, and there is a small right-sided pleural effusion 5 fall of the ladder. 6 small right-sided pleural effusion, pneumonia is doubtful at this stage 7 hypertension 8 hyperlipidemia Plan Continue using incentive spirometer very frequently. Avoid narcotic medications. Avoid nonsteroidal anti-inflammatory medication. Use Tylenol for pain control. Monitor the right-sided pleural effusion. No need for anticoagulation. Discharge planning is in progress. One final chest x-ray with him prior to him being discharged.
--- NOTE | 2016-09-22 08:04 | DS ---
DATE OF ADMISSION: 09/16/2016 DATE OF DISCHARGE: 09/21/2016 The patient had a recent fall and fracture. After this fall and fracture the patient was on narcotic pain medications, which led to ileus. The patient had rib fractures secondary to the fall, multiple rib fractures, and pulmonary contusion. His symptoms improved and patient has acute renal failure secondary to prerenal azotemia secondary to intravascular volume depletion, which improved. The patient moved his bowels. The patient is cleared by surgical services as well as pulmonary. The patient is being discharged today in stable medical condition to home. Patient was seen and examined on the day of discharge. GENERAL: The patient is alert and oriented x3, not in any acute distress. Well developed, well nourished. HEENT: Pupils are round and equally reacting to light. EOMI. No scleral icterus. No conjunctival pallor. Normocephalic, atraumatic. No pharyngeal erythema. No thyromegaly. CARDIOVASCULAR: S1 and S2 present. No murmurs, rubs, or gallops. PULMONARY: Chest is clear to auscultation, no wheezing or crackles. ABDOMEN: Soft, nontender, nondistended, normoactive bowel sounds. No palpable organomegaly. MUSCULOSKELETAL: No joint swelling or deformity. EXTREMITIES: No cyanosis, clubbing, or pedal edema. NEUROLOGICAL: Gross neurological examination did not reveal any focal deficits. SKIN: No rashes. FINAL DIAGNOSES: 1. Rib fractures with pulmonary contusion, multiple rib fractures, mostly in the right side. 2. Ileus. 3. Acute renal failure. 4. Hypertension. 5. Hyperlipidemia. Please refer to my depart summary for further details of discharge medications. DISCHARGE DIET: Cardiac. ACTIVITY: As tolerated. FOLLOWUP APPOINTMENT: With Dr. Rodriguez in 3 to 7 days; patient apparently has an appointment tomorrow with Dr. Rodriguez. I spent greater than 35 minutes on total discharge process.
== END 2016-09-21 15:55 | disposition home or self-care (01) | DRG 205 ==
LOC: EC 15:33 → 6SEL 19:55
PROVIDERS: ADMIT Hospitalist; ATTEND Hospitalist
PROC: 0D9670Z Drainage of Stomach with Drainage Device, Via Natural or Artificial Opening (ICD-10-PCS; principal; 2016-09-18)
DX: S27.321A Contusion of lung, unilateral, initial encounter (principal); N17.0 Acute kidney failure with tubular necrosis; E87.0 Hyperosmolality and hypernatremia; K56.7 Ileus, unspecified; J90 Pleural effusion, not elsewhere classified; S22.41XA Multiple fractures of ribs, right side, initial encounter for closed fracture; E87.1 Hypo-osmolality and hyponatremia; E86.9 Volume depletion, unspecified; Z66 Do not resuscitate; E87.8 Other disorders of electrolyte and fluid balance, not elsewhere classified; N18.3 Chronic kidney disease, stage 3 (moderate); I12.9 Hypertensive chronic kidney disease with stage 1 through stage 4 chronic kidney disease, or unspecified chronic kidney disease; E78.5 Hyperlipidemia, unspecified; W11.XXXA Fall on and from ladder, initial encounter; Z85.828 Personal history of other malignant neoplasm of skin; Z79.1 Long term (current) use of non-steroidal anti-inflammatories (NSAID); Z79.899 Other long term (current) drug therapy
CPT/HCPCS: 36415; 71010; 71020; 74000; 78582; 80048; 80053; 80299; 81001; 82550; 82553; 82565; 83605; 83735; 83880; 84132; 84484; 85025; 85027; 85379; 85610; 85730; 87040; 87324; 93005; 93970; 94640; 96365; 96366; 96367; 96372; 99285

== ENCOUNTER → 2018-06-04 | Outpatient (CLI) | payer MEDICARE, BC ==
--- NOTE | 2018-06-04 16:34 | US ---
EXAMINATION TYPE: US venous doppler duplex LE LT DATE OF EXAM: 06/04/2018 1:11 PM COMPARISON: 09/16/2016 CLINICAL HISTORY: 73-year-old male R60.0 edema. LEFT foot swelling, no prev DVT SIDE PERFORMED: left TECHNIQUE: The lower extremity deep venous system is examined utilizing real time linear array sonog sophy with graded compression, doppler sonography and color-flow sonography. FINDINGS: VESSELS IMAGED: External Iliac Vein (EIV) Common Femoral Vein Deep Femoral Vein Greater Saphenous Vein * Femoral Vein Popliteal Vein Small Saphenous Vein * Proximal Calf Veins (* superficial vessels) Left Leg: neg for LLE DVT IMPRESSION: No evidence for DVT within the left lower extremity imaged from the groin to the upper calf.
== END | disposition home or self-care (01) ==
LOC: RADUSWWP 12:42
PROVIDERS: ATTEND Family Medicine
DX: R60.0 Localized edema (principal)

== ENCOUNTER 2020-11-18 07:49 | Day surgery (SDC) | payer BC, MEDICARE, OTHER ==
[2020-11-16 10:17] VITALS: BMI 25.8
[~2020-11-18 07:49] MED LIST: CYCLOPENTOLATE 1% OPHTH SOLN 2 ML BTL OP PRN; LACTATED RINGERS 1,000 ML IV SCH; MOXIFLOXACIN HCL 0.5% DROPS 3 ML BTL OP PRN; PHENYLEPHRINE 2.5% OPHTH DRP 2ML OP PRN; TETRACAINE 0.5% OPHTH (PF) DROPS 4 ML BTL OP PRN; TIMOLOL 0.5% OPHTH DROPS 5 ML BTL OP PRN
[2020-11-18 08:28] VITALS: TEMP 98.7
[2020-11-18] MEDS ORDERED: LIDOCAINE 1% (10MG/ML) FOR IV START INTRADERMA ONE (08:41)
[2020-11-18] MEDS ORDERED: MIDAZOLAM 2 MG/2 ML VIAL ONE ×2 (09:36)
[2020-11-18] MEDS ORDERED: fentaNYL (PF) 50 MCG/ML 2 ML AMP ONE ×2 (09:36)
[2020-11-18] MEDS ORDERED: EPINEPHrine (PF) 0.3 ML in BALANCED SALT IRRIG SOLN COMB2 500 ML IRRIGATION ONE ×4 (09:43)
[2020-11-18] MEDS ORDERED: HYALURONATE SODIUM INTRAOCULAR 1 EACH SYRINGE (12MG/ML) INTRAOCULA ONE (09:47)
[2020-11-18] MEDS ORDERED: BALANCED SALT IRRIG SOLN COMB2 15 ML IRRIG.SOLN IRRIGATION ONE (09:47)
[2020-11-18] MEDS ORDERED: LIDOCAINE 1% (PF) 10MG/ML VIAL MISCELLANE ONE (09:47)
--- NOTE | 2020-11-18 10:04 | P.OP ---
Date of Procedure: 11/18/20 Preoperative Diagnosis: NS & CS * PSC Postoperative Diagnosis: same Procedure(s) Performed: PIOL, OD Implants: MX60E 20.50 Anesthesia: MAC Surgeon: Efren Bahena Pathology: none sent Condition: stable Disposition: same day Indications for Procedure: blurry vision Operative Findings: no complications
[2020-11-18 10:26] VITALS: BP 150/78; PULSE 66; RESP 16
--- NOTE | 2020-11-18 16:12 | OP ---
OPERATIVE REPORT DATE OF SURGERY: November 18, 2020. PROCEDURE: Phacoemulsification of cataract and intraocular lens implant of the right eye. PREOPERATIVE DIAGNOSES: Nuclear sclerosis, cortical sclerosis, posterior subcapsular cataract and regular astigmatism. POSTOPERATIVE DIAGNOSIS: Nuclear sclerosis, cortical sclerosis, posterior subcapsular cataract and regular astigmatism. SURGEON: Dr. Efren Bahena. ANESTHESIA: Topical. ESTIMATED BLOOD LOSS: None. SPECIMEN TAKEN: None. NARRATIVE: After obtaining the appropriate consent, the patient was brought to the operating room. There he was placed on cardiac monitoring prepped and draped in the usual sterile manner. He was approached from his 12 o'clock position and at the 2 o'clock position on the eye. An MVR blade was used to create a paracentesis port. Through this opening 1% Xylocaine MPF 50:50 mix of balanced salt solution was injected into the anterior chamber. This was followed by stabilization of the anterior chamber with Amvisc. At the 12 o'clock position, a 2.5 mm keratome was used to create a self-sealing corneal flap incision. Through this opening, a cystotome was introduced to begin a continuous tear capsulorrhexis which was then completed using the Utrata forceps. Hydrodissection and hydrodelineation of the lens was accomplished with balanced salt solution. Phacoemulsification of the lens utilizing phaco chop was accomplished in 12.05 seconds at 12% power. Additional Xylocaine MPF was instilled into the anterior chamber. This was followed by removal of the remaining cortex under irrigation and aspiration as well as careful polishing of the posterior capsule in the capsule vacuum mode. Additional Amvisc was then used to stabilize the capsular bag and a [employer] MX60E 20.5 diopter posterior chamber intraocular lens was then injected into the capsular bag without difficulty. The remaining viscoelastic was then removed from in and around the intraocular lens and the eye was brought to normal intraocular pressure through the paracentesis port ensuring watertight integrity. He then received 2 drops of 0.5% timolol followed by 2 drops of moxifloxacin was then lightly patched and shielded in the usual manner. There were no complications from the procedure. He tolerated the procedure well and was returned to outpatient recovery in good condition. MMODL / IJN: [id number] /
== END 2020-11-18 10:43 | disposition home or self-care (01) ==
LOC: OR 07:49
PROVIDERS: ATTEND Ophthalmology
DX: E11.36 Type 2 diabetes mellitus with diabetic cataract (principal); H25.11 Age-related nuclear cataract, right eye; H25.041 Posterior subcapsular polar age-related cataract, right eye; H52.221 Regular astigmatism, right eye; H52.03 Hypermetropia, bilateral; H52.223 Regular astigmatism, bilateral; H53.50 Unspecified color vision deficiencies; I10 Essential (primary) hypertension; E78.00 Pure hypercholesterolemia, unspecified; Z82.61 Family history of arthritis; Z79.899 Other long term (current) drug therapy; Z80.9 Family history of malignant neoplasm, unspecified; Z82.49 Family history of ischemic heart disease and other diseases of the circulatory system; Z82.3 Family history of stroke
CPT/HCPCS: 66984; C1780; J2250; J0171; J3010; J2001

== ENCOUNTER → 2021-05-18 | Outpatient (CLI) | payer MEDICARE ==
[2021-05-18 17:17] LABS: Basophils # (A) 0.02 X 10*3/uL (0.00-0.10); Basophils % (A) 0.4 %; Eosinophils # (A) 0.46 X 10*3/uL (0.04-0.35); Eosinophils % (A) 9.6 %; HCT 41.3 % (39.6-50.0); HGB 13.3 g/dL (13.0-17.0); Lymphocytes # (A) 1.13 X 10*3/uL (0.90-5.00); Lymphocytes % (A) 23.6 %; MCHC 32.2 g/dL (32.0-37.0); MCV 96.3 fL (80.0-97.0); Monocytes % (A) 10.4 %; Neutrophils # (A) 2.67 X 10*3/uL (1.80-7.70); Neutrophils % (A) 55.8 %; Platelet Count 117 X 10*3/uL (140-440); RBC 4.29 X 10*6/uL (4.40-5.60); RDW 12.9 % (11.5-14.5); WBC 4.79 X 10*3/uL (4.50-10.00)
[2021-05-18 17:35] LABS: Hemoglobin A1C 5.4 % (4.0-6.0)
[2021-05-19 19:24] LABS: Insulin Level 5.3 mIU/mL (3.0-25.0)
[2021-05-20 00:36] LABS: Prostate Specific Antigen 3.2 ng/mL (0.00-6.50)
[2021-05-20 01:00] LABS: T4, Free (Free Thyroxine) 1.29 ng/dL (0.800-1.800)
[2021-05-20 03:12] LABS: C Reactive Protein, High Sens 6.74 mg/L (0.000-3.000)
[2021-05-20 03:14] LABS: Chol/HDL Ratio 1.92 Ratio; HDL Cholesterol 74.5 mg/dL (40.00-60.00); LDL Cholesterol,Calculated 56.3 mg/dL (0.0-131.0); Triglycerides 61.2 mg/dL (0.00-149.00); VLDL Calculation 12.24 mg/dL (5.00-40.00)
[2021-05-20 05:10] LABS: African American GFR (CKD) 104.8 (60.0-200.0); Albumin 4.3 g/dL (3.8-4.9); Albumin/Globulin Ratio 2.19 (1.60-3.17); Anion Gap 16.5 mmol/L (4.00-12.00); BUN/Creat Ratio 25.92 Ratio (12.00-20.00); Blood Urea Nitrogen 19.1 mg/dL (9.0-27.0); Calcium 9.2 mg/dL (8.7-10.3); Carbon Dioxide 19.6 mmol/L (21.6-31.8); Globulin 1.9 g/dL (1.6-3.3); Non-African American GFR(CKD) 90.4 (60.0-200.0); Potassium 4.1 mmol/L (3.5-5.5); Total Bilirubin 0.6 mg/dL (0.30-1.20); Total Protein 6.2 g/dL (6.2-8.2)
== END | disposition home or self-care (01) ==
LOC: LABWHC1 07:55
PROVIDERS: ATTEND Neuromusculoskeletal Medicine & OMM
DX: E03.9 Hypothyroidism, unspecified (principal); E88.81 Metabolic syndrome and other insulin resistance; M25.50 Pain in unspecified joint; M79.609 Pain in unspecified limb; R53.83 Other fatigue
CPT/HCPCS: 36415; 80053; 80061; 82627; 82728; 83036; 83090; 83525; 84153; 84402; 84403; 84439; 84443; 84481; 85025; 86141

== ENCOUNTER → 2021-07-01 | Outpatient (CLI) | payer MEDICARE ==
--- NOTE | 2021-07-01 08:24 | US ---
EXAMINATION TYPE: US duplex aorta DATE OF EXAM: 07/01/2021 COMPARISON: CT 2017 CLINICAL HISTORY: I71.3 AAA. EXAM MEASUREMENTS: Abdominal Aorta: Proximal: 1.6x1.7cm Mid: 1.7x1.8cm Distal: 1.8x1.6cm Bifurcation: 1.3x1.4cm 1.1x1.2cm IMPRESSION: 1. Mild fusiform prominence of the distal abdominal aorta compared to the proximal abdominal aorta.
== END | disposition home or self-care (01) ==
LOC: RADUSWWP 07:27
PROVIDERS: ATTEND Neuromusculoskeletal Medicine & OMM
DX: I71.4 Abdominal aortic aneurysm, without rupture (principal)
CPT/HCPCS: 93979

== ENCOUNTER → 2021-07-06 | Outpatient (CLI) | payer MEDICARE ==
--- NOTE | 2021-07-06 11:04 | US ---
EXAMINATION TYPE: US carotid duplex BILAT DATE OF EXAM: 07/06/2021 COMPARISON: NONE CLINICAL HISTORY: I65.23 atherosclerosis of carotid arteries. HTN, DM, High cholesterol EXAM MEASUREMENTS: RIGHT: Peak Systolic Velocity (PSV) cm/sec ----- Right CCA: 95.3 ----- Right ICA: 126.9 ----- Right ECA: 111.7 ICA/CCA ratio: 1.3 RIGHT: End Diastole cm/sec ----- Right CCA: 25.6 ----- Right ICA: 41.1 ----- Right ECA: 12.8 LEFT: Peak Systolic Velocity (PSV) cm/sec ----- Left CCA: 94.1 ----- Left ICA: 143.1 ----- Left ECA: 139.9 ICA/CCA ratio: 1.5 LEFT: End Diastole cm/sec ----- Left CCA: 28.5 ----- Left ICA: 33.3 ----- Left ECA: 17.1 VERTEBRALS (direction of flow): Right Vertebral: Antegrade Left Vertebral: Antegrade Rhythm: Normal Bilateral bulb plaque seen, more seen in left bulb, Perkins scale images show moderate to severe left greater than right atherosclerotic changes. Increased peak systolic velocities bilaterally. IMPRESSION: [id number] atherosclerotic changes bilaterally. Possible stenosis just over 50% on the left. Advise CTA or MRA of the neck to further evaluate and characterize. Criteria for Assigning % of Stenosis / Diameter reduction (Estimation based on the indirect measurements of the internal carotid artery velocities (ICA PSV). 1. Normal (no stenosis)=ICA PSV < 125 cm/s: ratio < 2.0: ICA EDV<40 cm/s. 2. Less than 50% stenosis=ICA PSV < 125 cm/s: ratio < 2.0: ICA EDV<40 cm/s. 3. 50 to 69% stenosis=ICA PSV of 125 to 230 cm/s: ration 2.0 ? 4.0: ICA EDV 40-100 cm/s. 4. Greater than 70% stenosis to near occlusion= ICA PSV > 230 cm/s: ratio > 4.0: ICA EDV > 100 cm/s. 5. Near occlusion= ICA PSV velocities may be low or undetectable: variable ratio and ICA EDV. 6. Total occlusion=unable to detect flow.
== END | disposition home or self-care (01) ==
LOC: RADUSWWP 10:03
PROVIDERS: ATTEND Neuromusculoskeletal Medicine & OMM
DX: I65.23 Occlusion and stenosis of bilateral carotid arteries (principal); E11.9 Type 2 diabetes mellitus without complications; I10 Essential (primary) hypertension
CPT/HCPCS: 93880

== ENCOUNTER → 2021-09-17 | Outpatient (CLI) | payer MEDICARE ==
[2021-09-17 16:11] LABS: Albumin 4.3 g/dL (3.8-4.9); Albumin/Globulin Ratio 1.76 (1.60-3.17); Anion Gap 12.7 mmol/L (10.00-18.00); BUN/Creat Ratio 18.1 Ratio (12.00-20.00); Blood Urea Nitrogen 17.1 mg/dL (9.0-27.0); Calcium 9.6 mg/dL (8.7-10.3); Carbon Dioxide 26.5 mmol/L (20.0-27.5); Globulin 2.5 g/dL (1.6-3.3); Non-African American GFR(CKD) 78.5 (60.0-200.0); Potassium 4.1 mmol/L (3.5-5.5); Prostate Specific Antigen 8.7 ng/mL (0.00-6.50); T4, Free (Free Thyroxine) 1.17 ng/dL (0.800-1.800); Total Bilirubin 0.7 mg/dL (0.30-1.20); Total Protein 6.8 g/dL (6.2-8.2)
[2021-09-17 16:19] LABS: C Reactive Protein, High Sens 4.69 mg/L (0.000-3.000)
== END | disposition home or self-care (01) ==
LOC: LABWHC1 08:50
DX: E03.9 Hypothyroidism, unspecified (principal); E21.5 Disorder of parathyroid gland, unspecified; E88.81 Metabolic syndrome and other insulin resistance; G61.81 Chronic inflammatory demyelinating polyneuritis; G47.30 Sleep apnea, unspecified; M25.50 Pain in unspecified joint; M79.609 Pain in unspecified limb; D89.9 Disorder involving the immune mechanism, unspecified; R53.83 Other fatigue; R79.9 Abnormal finding of blood chemistry, unspecified; R79.82 Elevated C-reactive protein (CRP)
CPT/HCPCS: 36415; 80053; 82306; 83036; 83090; 84153; 84439; 84443; 84481; 86141

== ENCOUNTER → 2022-02-16 | Outpatient (CLI) | payer MEDICARE ==
[2022-02-16 12:51] LABS: Appearance,Urine Clear (Clear); Bilirubin,Urine Negative (Negative); Blood,Urine Negative (Negative); Color,Urine Light Yellow; Glucose,Urine (UA) Negative (Negative); Ketones,Urine Negative (Negative); Leukocyte Esterase,Urine Negative (Negative); Nitrite,Urine Negative (Negative); Protein,Urine Negative (Negative); Specific Gravity,Urine 1.005 (1.001-1.035); Urobilinogen,Urine <2.0 mg/dL (<2.0)
[2022-02-16 18:08] LABS: Basophils # (A) 0.02 X 10*3/uL (0.00-0.10); Basophils % (A) 0.5 %; Eosinophils # (A) 0.15 X 10*3/uL (0.04-0.35); Eosinophils % (A) 3.5 %; HCT 38.7 % (39.6-50.0); HGB 12.7 g/dL (13.0-17.0); Immature Grans, Automated 0.2 %; MCH 30.5 pg (27.0-32.0); MCHC 32.8 g/dL (32.0-37.0); Mean Platelet Volume 11.4 fL (9.5-12.2); Monocytes # (A) 0.51 X 10*3/uL (0.20-1.00); Monocytes % (A) 11.9 %; NRBC Per 100 WBC 0 /100 WBCS (0.0-0.0); Neutrophils % (A) 62.9 %; Platelet Count 125 X 10*3/uL (140-440); RBC 4.16 X 10*6/uL (4.40-5.60); RDW 13.4 % (11.5-14.5); WBC 4.29 X 10*3/uL (4.50-10.00)
[2022-02-16 18:26] LABS: BUN/Creat Ratio 24.57 Ratio (12.00-20.00); Blood Urea Nitrogen 22.8 mg/dL (9.0-27.0); Calcium 9.6 mg/dL (8.7-10.3); Non-African American GFR(CKD) 80.2 (60.0-200.0); Potassium 4.1 mmol/L (3.5-5.5)
== END | disposition home or self-care (01) ==
LOC: LABPAT 11:32
PROVIDERS: ATTEND Urology
DX: Z01.812 Encounter for preprocedural laboratory examination (principal); N40.1 Benign prostatic hyperplasia with lower urinary tract symptoms
CPT/HCPCS: 36415; 80048; 81003; 85025; 87086

== ENCOUNTER 2022-02-24 09:37 | Inpatient (IN) | payer MEDICARE ==
[2022-02-17 09:56] VITALS: BMI 21.5
[~2022-02-24 09:37] MED LIST changes: -CYCLOPENTOLATE 1% OPHTH SOLN 2 ML BTL OP PRN; +DEXAMETHASONE SOD PHOSPHATE 4 MG/ML 1 ML VIAL IV ONE; +HEPARIN SODIUM,PORCINE/PF 5,000 UNIT/0.5 ML SYRINGE SQ PRN; +HYDROmorphone 0.5 MG/0.5 ML SYRINGE IVP PRN; -LACTATED RINGERS 1,000 ML IV SCH; -MOXIFLOXACIN HCL 0.5% DROPS 3 ML BTL OP PRN; +ONDANSETRON 4 MG/2 ML VIAL IVP ONE; -PHENYLEPHRINE 2.5% OPHTH DRP 2ML OP PRN; -TETRACAINE 0.5% OPHTH (PF) DROPS 4 ML BTL OP PRN; -TIMOLOL 0.5% OPHTH DROPS 5 ML BTL OP PRN
[2022-02-24 10:30] LABS: Glucose,Whole Blood 111 mg/dL (70-110)
[2022-02-24] MEDS: LACTATED RINGERS 1,000 ML IV SCH (10:46)
[2022-02-24] MEDS ORDERED: MIDAZOLAM 2 MG/2 ML VIAL IVP ONE (10:57)
--- NOTE | 2022-02-24 11:15 | P.HPIHPCON ---
History of Present Illness Chief Complaint: BPH This is a 76-year-old male with history of 91 g prostate, He has significant urinary symptoms secondary to his enlarged prostate. Discussed with him given his prostate size the option of robotic simple prostatectomy versus a HoLEP. Discussed risk and benefit of each approach. He agreed to proceed with robotic simple prostatectomy discussed the risk which includes but not limited to bleeding, infection, urinary incontinence, erectile dysfunction, retrograde ejaculation, injury to nearby organs which includes but not limited to bladder, rectum, bowel. Discussed also potential persistent overactive bladder symptoms even with simple prostatectomy. Discussed also risk from anesthesia. He u nderstood all the risk and agreed to proceed Consent for Procedure: I have explained the operation/procedure to the patient, including the risks, benefits, side effects, alternative therapies (including not receiving the proposed treatment or service), the likelihood of the patient achieving his/her goals, and potential recuperation problems for the procedure/sedation/analgesia, as well as any blood products, if indicated. I also explained to the patient the risks, benefits and side effects of the alternatives, as well as the risks related to not receiving the proposed procedure, care, treatment, or services. 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, bhaskar cataracts , diet control diabetic, fell in 2017 and fx 8 ribs and dislocated rt shoulder History of Any Multi-Drug Resistant Organisms: None Reported Past Surgical History: Adenoidectomy, Appendectomy, Hernia Repair, Orthopedic Surgery, Tonsillectomy Additional Past Surgical History / Comment(s): surgery for sleep apnea, skin cancer removal, bhaskar heel spurs, bhaskar carpal tunnel, hemorrhoidectomy, bhaskar cataracts Past Anesthesia/Blood Transfusion Reactions: No Reported Reaction Smoking Status: Never smoker - Past Family History Father Family Medical History: CVA/TIA, Hyperlipidemia, Hypertension, Myocardial Infarction (MD) Mother Family Medical History: Cancer Medications and Allergies Home Medications Medication Instructions Recorded Confirmed Type Cholecalciferol [Vitamin D3 (25 15,000 unit PO DAILY 09/08/16 02/24/22 History Mcg = 1000 Iu)] Garlic 1 tab PO DAILY 09/08/16 02/24/22 History [place]-3 Fatty Acids/Fish Oil [Fish 1 cap PO DAILY 09/08/16 02/24/22 History Oil 1,000 mg Softgel] Vitamin B Complex 1 cap PO DAILY 09/08/16 02/24/22 History Ascorbic Acid [Vitamin C] 500 mg PO DAILY 09/16/16 02/24/22 History Fluticasone Nasal [place] [Flonase 2 spr EA NOSTRIL DAILY PRN 09/16/16 02/24/22 History Nasal [place]] Carboxymethylcellulose Sodium 15 ml OP DAILY PRN 11/16/20 02/24/22 History [Refresh Tears] Epinastine 1 drop BOTH EYES DAILY PRN 11/16/20 02/24/22 History Ezetimibe/Simvastatin [Vytorin 1 tab PO HS 11/16/20 02/24/22 History 10-20 mg] Magnesium 300 mg PO DAILY 11/16/20 02/24/22 History Olmesartan/Hydrochlorothiazide 1 each PO QAM 02/17/22 02/24/22 History [Olmesartan-Hctz 40-25 mg Tab] Tamsulosin HCl [Flomax] 0.4 mg PO BID 02/17/22 02/24/22 History Thyroid,Pork [Audiovisual Aids Technician Thyroid] 60 mg PO QAM 02/17/22 02/24/22 History Allergies Allergy/AdvReac Type Severity Reaction Status Date / Time SEASONAL ALLERGIES Allergy Itching Uncoded 02/24/22 10:10 Surgical - Exam Vital Signs Temp Pulse Resp BP Pulse Ox 98.5 F 71 16 143/67 98 02/24/22 10:49 02/24/22 10:49 02/24/22 10:49 02/24/22 10:49 02/24/22 10:49 - General no distress, no pain - Eyes normal ocular movement, no pale - ENT normal nares, normal mucosa - Respiratory normal expansion, normal respiratory effort - Abdomen Abdomen: soft, non tender Results - Labs Abnormal Lab Results - Last 24 Hours (Table) 02/24/22 Range/Units 10:28 POC Glucose (mg/dL) 111 H (70-110) mg/dL Assessment and Plan Assessment: OR for robotic simple prostatectomy
[2022-02-24] MEDS ORDERED: GLYCOPYRROLATE 0.2 MG/ML 2 ML VIAL ONE (11:46)
[2022-02-24] MEDS ORDERED: HYDROmorphone (PF) 1 MG/ML ONE (11:46)
[2022-02-24] MEDS ORDERED: ROCURONIUM 10 MG/ML (5 ML VIAL) IV ONE (11:46)
[2022-02-24] MEDS ORDERED: PROPOFOL 10 MG/ML 20 ML VIAL IV ONE (11:46)
[2022-02-24] MEDS ORDERED: SUCCINYLCHOLINE CHLORIDE 100 MG/5 ML SYR IV ONE (11:46)
[2022-02-24] MEDS ORDERED: NEOSTIGMINE 1 MG/ML 10 ML VIAL ONE (11:46)
[2022-02-24] MEDS ORDERED: fentaNYL (PF) 50 MCG/ML 2 ML AMP ONE (11:46)
[2022-02-24] MEDS ORDERED: SODIUM CHLORIDE 0.9% (PF) 10 ML VIAL ONE (11:46)
[2022-02-24] MEDS ORDERED: LABETALOL 5 MG/ML VIAL MDV ONE (11:46)
[2022-02-24] MEDS ORDERED: ROPIVACAINE 5 MG/ML 30 ML VIAL ONE (11:46)
[2022-02-24] MEDS ORDERED: LIDOCAINE 2% INJ 20 MG/ML (2 ML VIAL) ONE (11:46)
[2022-02-24] MEDS ORDERED: DEXAMETHASONE SOD PHOSPHATE 10 MG/ML 1 ML VIAL ONE (11:46)
[2022-02-24] MEDS ORDERED: BUPIVACAINE (PF) 0.25% 30 ML VIAL SQ ONE (11:49)
--- NOTE | 2022-02-24 13:06 | P.ANPRN ---
Procedure Note - Anesthesia - Nerve Block Performed Bilateral Erector Spinae Single Time Out Performed: Yes Date of Procedure: 02/24/22 Procedure Start Time: 10:56 Procedure Stop Time: 11:04 Location of Patient: PreOp Indication: Acute Post-Operative Pain, Requested by Surgeon Sedation Type: Sedate with meaningful contact maintained Preparation: Sterile Prep Position: Prone Needle Types: Pajunk Needle Gauge: 21 Ultrasound used to visualize needle placement: Yes Ultrasound used to observe medication spread: Yes Blood Aspirated: No Pain Paresthesia on Injection Noted: No Resistance on Injection: Normal Image Stored and Saved: Yes Events: Uneventful and Well Tolerated (ropi .5% 15cc plus ns 10cc plus dexamethasone 4mg at L1 given bilaterally)
[2022-02-24] MEDS ORDERED: FLUTICASONE 50MCG/SPRAY NASAL 16GM EA NOSTRIL PRN (15:11)
[2022-02-24] MEDS ORDERED: HYDROcodone/APAP 5-325MG 1 EACH TAB PO PRN (15:13)
[2022-02-24 15:21] VITALS: RESP 16
--- NOTE | 2022-02-24 15:21 | P.OP ---
Date of Procedure: 02/24/22 Preoperative Diagnosis: BPH Postoperative Diagnosis: Same Procedure(s) Performed: Robotic simple prostatectomy Anesthesia: JAZMYN Surgeon: Bob Dang Product Development Intern #1: Myaank Tinsley Estimated Blood Loss (ml): 150 Pathology: other (Prostate adenoma) Condition: stable Disposition: PACU Indications for Procedure: This is a 76-year-old male with history of 91 g prostate, He has significant urinary symptoms secondary to his enlarged prostate. Discussed with him given his prostate size the option of robotic simple prostatectomy versus a HoLEP. Discussed risk and benefit of each approach. He agreed to proceed with robotic simple prostatectomy discussed the risk which includes but not limited to bleeding, infection, urinary incontinence, erectile dysfunction, retrograde ejaculation, injury to nearby organs which includes but not limited to bladder, rectum, bowel. Discussed also potential persistent overactive bladder symptoms even with simple prostatectomy. Discussed also risk from anesthesia. He understood all the risk and agreed to proceed Description of Procedure: After preoperative antibiotics were started, the patient was taken to the operating room. Anesthesia was induced and the patient was placed in a supine position with adequate padding of the pressure points, shoulders, back, legs and arms. He was then prepped and draped in the standard fashion. A critical pause was performed using two patient identifiers. A 16F peña catheter was placed to gravity drainage. A pneumoperitoneum was obtained using a Veress needle, after pneumoperitoneum was obtained a 8 mm camera port was placed. Under direct vision a 8mm robotic ports was placed lateral to each rectus slightly below the camera port. The left iliac fossa 8mm port was placed. The right assistant general manager right iliac fossa 12mm port and right paramedian 5mm portwere placed. Patient had adhesions along the right lower quadrant which was taken down sharply using a lap scissors. After the patient was placed in the trendelenberg position, the robot was then docked to the 8mm robotic ports and then each robotic arm and tower was checked in relation to the patient's legs and hands to avoid inadvertent compression. The peritoneal cavity was inspected. Adhesions were taken down along the left lower quadrant An inverted U-shaped incision began laterally to the left medial umbilical ligament and extended high across the midline to the right umbilical ligament. The limbs of the "U" extended to the level of the vasa on both sides. We next developed the preperitoneal space and the space of Retzius. Cautery was used to dissected the bladder away from the prostate, the incision was made in close proximity to the prostate, and incision was extended laterally and at this point the plane between the adenoma and the surgical capsule is identified. Of note patient had an enlarged median lobe. Both ureteral orifices were identified and neither was injured during the dissection . The adenoma was dissected off of the capsule by combination of blunt dissection and minimum cautery. dissection was initially started along the anterior surface and posterior surface of adenoma, and this was carried laterally. The dissection was carried to the apex, at this point the urethral-prostatic junction was visualized and the prostate was transected at the junction. Prostate adenoma was placed in an endocatch bag . A 9and 9 inch 3-0 V-Lock suture was used to anastomose the urethra and bladder, starting at the 6:00 posterior position. Mucosa was secured in every stitch, to ensure a mucosa to mucosa anastomosis. The stitch was regularly cinched and the anastomosis tightened. . The 20 Fr Peña catheter was advanced, the bladder filled, and the anastomosis was tested. Anastomsis was watertight at 150 mL. balloon was inflated to 10 mL hemostatic agent were applied to the surgical bed. The robot was undocked. specimen was extracted from the supraumbilical incision. The periumbilical fascia was closed with 1-0-PDS suture in figure of 8 fashion. All ports were closed with a subcuticular 4-0 monocryl and Dermabond. Sponge, instrument, and needle counts were correct at the end of the case x2. The patient tolerated the surgery well and without complication. He awoke without difficulty and was taken to the recovery room in stable condition
[2022-02-24] MEDS: HEPARIN SODIUM,PORCINE/PF 5,000 UNIT/0.5 ML SYRINGE SQ SCH ×2 (16:57→23:26)
[2022-02-24] MEDS: KETOROLAC 15 MG/ML 1 ML VIAL IVP SCH ×2 (17:24→23:26)
[2022-02-24] MEDS: D5-0.45% NACL WITH KCL 20MEQ/L 1,000 ML IV SCH ×2 (17:24→23:43)
[2022-02-24 20:15] LABS: Glucose,Whole Blood 213 mg/dL (70-110)
[2022-02-24] MEDS ORDERED: ATORVASTATIN 10 MG TAB PO SCH (21:00)
[2022-02-24] MEDS ORDERED: EZETIMIBE 10 MG TAB PO SCH (21:00)
[2022-02-24] MEDS: INSULIN ASPART (NovoLOG) 100 UNIT/ML VIAL SQ SCH (21:02)
[2022-02-25] MEDS: KETOROLAC 15 MG/ML 1 ML VIAL IVP SCH ×2 (05:23→11:39)
[2022-02-25] MEDS: LACTATED RINGERS 1,000 ML IV SCH (06:25)
[2022-02-25 07:13] LABS: Glucose,Whole Blood 206 mg/dL (70-110)
[2022-02-25 07:27] VITALS: BP 130/63; PULSE 64; TEMP 99
[2022-02-25] MEDS: HEPARIN SODIUM,PORCINE/PF 5,000 UNIT/0.5 ML SYRINGE SQ SCH (08:21)
[2022-02-25] MEDS: INSULIN ASPART (NovoLOG) 100 UNIT/ML VIAL SQ SCH (08:23)
[2022-02-25] MEDS ORDERED: LOSARTAN-HCTZ 50-12.5 MG 1 EACH TAB PO SCH (09:00)
[2022-02-25] MEDS ORDERED: LOSARTAN 50 MG TAB PO SCH (09:00)
--- NOTE | 2022-02-25 09:00 | P.DS ---
Providers Attending physician: Bob Dang MD Primary care physician: [facility] Course: This is a 76-year-old male history of BPH secondary to obstructive prostate. Underwent a robotic simple prostatectomy on February 24. Please see op note dated February 24 for surgery detail. He did well in the postoperative period. He was discharged home on postoperative day #1,at time of discharge he was tolerating a diet, ambulating, pain was controlled Plan - Discharge Summary Discharge Rx Participant: Yes New Discharge Prescriptions: No Action [place]-3 Fatty Acids/Fish Oil [Fish Oil 1,000 mg Softgel] 1 cap PO DAILY Vitamin B Complex 1 cap PO DAILY Garlic 1 tab PO DAILY Cholecalciferol [Vitamin D3 (25 Mcg = 1000 Iu)] 15,000 unit PO DAILY Ascorbic Acid [Vitamin C] 500 mg PO DAILY Fluticasone Nasal [place] [Flonase Nasal [place]] 2 spr EA NOSTRIL DAILY PRN PRN Reason: Allergy Symptoms Ezetimibe/Simvastatin [Vytorin 10-20 mg] 1 tab PO HS Carboxymethylcellulose Sodium [Refresh Tears] 15 ml OP DAILY PRN PRN Reason: Dry Eye(S) Magnesium 300 mg PO DAILY Epinastine 1 drop BOTH EYES DAILY PRN PRN Reason: allergies Thyroid,Pork [Towel Folder Thyroid] 60 mg PO QAM Olmesartan/Hydrochlorothiazide [Olmesartan-Hctz 40-25 mg Tab] 1 each PO QAM Tamsulosin HCl [Flomax] 0.4 mg PO BID Discharge Medication List Cholecalciferol [Vitamin D3 (25 Mcg = 1000 Iu)] 15,000 unit PO DAILY 09/08/16 [History] Garlic 1 tab PO DAILY 09/08/16 [History] [place]-3 Fatty Acids/Fish Oil [Fish Oil 1,000 mg Softgel] 1 cap PO DAILY 09/08/16 [History] Vitamin B Complex 1 cap PO DAILY 09/08/16 [History] Ascorbic Acid [Vitamin C] 500 mg PO DAILY 09/16/16 [History] Fluticasone Nasal [place] [Flonase Nasal [place]] 2 spr EA NOSTRIL DAILY PRN 09/16/16 [History] Carboxymethylcellulose Sodium [Refresh Tears] 15 ml OP DAILY PRN 11/16/20 [History] Epinastine 1 drop BOTH EYES DAILY PRN 11/16/20 [History] Ezetimibe/Simvastatin [Vytorin 10-20 mg] 1 tab PO HS 11/16/20 [History] Magnesium 300 mg PO DAILY 11/16/20 [History] Olmesartan/Hydrochlorothiazide [Olmesartan-Hctz 40-25 mg Tab] 1 each PO QAM 02/17/22 [History] Tamsulosin HCl [Flomax] 0.4 mg PO BID 02/17/22 [History] Thyroid,Pork [Towel Folder Thyroid] 60 mg PO QAM 02/17/22 [History]
[2022-02-25] MEDS: D5-0.45% NACL WITH KCL 20MEQ/L 1,000 ML IV SCH (10:44)
== END 2022-02-25 12:19 | disposition home or self-care (01) | DRG 718 ==
LOC: OR 09:37 → 5NMEDONC 15:21 → OR 02-25 08:49
PROVIDERS: ADMIT Urology; ATTEND Urology
PROC: 8E0W4CZ Robotic Assisted Procedure of Trunk Region, Percutaneous Endoscopic Approach (ICD-10-PCS; principal; 2022-02-24 11:30)
PROC: 0VB04ZZ Excision of Prostate, Percutaneous Endoscopic Approach (ICD-10-PCS; principal; 2022-02-24 11:30)
DX: N40.0 Benign prostatic hyperplasia without lower urinary tract symptoms (principal); E11.9 Type 2 diabetes mellitus without complications; J61 Pneumoconiosis due to asbestos and other mineral fibers; E78.5 Hyperlipidemia, unspecified; I10 Essential (primary) hypertension; J30.2 Other seasonal allergic rhinitis; Z79.890 Hormone replacement therapy; Z79.899 Other long term (current) drug therapy
CPT/HCPCS: 64999; 76942; 86850; 86900; 86901; 88307

== ENCOUNTER → 2022-03-18 | Outpatient (CLI) | payer MEDICARE ==
[2022-03-18 10:46] LABS: Basophils # (A) 0.02 X 10*3/uL (0.00-0.10); Basophils % (A) 0.5 %; Eosinophils # (A) 0.37 X 10*3/uL (0.04-0.35); Eosinophils % (A) 9.2 %; HCT 38.7 % (39.6-50.0); HGB 12.6 g/dL (13.0-17.0); Immature Grans, Automated 0.2 %; Lymphocytes # (A) 0.86 X 10*3/uL (0.90-5.00); Lymphocytes % (A) 21.3 %; MCH 30.6 pg (27.0-32.0); MCHC 32.6 g/dL (32.0-37.0); MCV 93.9 fL (80.0-97.0); Mean Platelet Volume 11.5 fL (9.5-12.2); Monocytes # (A) 0.38 X 10*3/uL (0.20-1.00); Monocytes % (A) 9.4 %; NRBC Per 100 WBC 0 /100 WBCS (0.0-0.0); Neutrophils # (A) 2.39 X 10*3/uL (1.80-7.70); Neutrophils % (A) 59.4 %; Platelet Count 116 X 10*3/uL (140-440); RBC 4.12 X 10*6/uL (4.40-5.60); RDW 13.1 % (11.5-14.5); WBC 4.03 X 10*3/uL (4.50-10.00)
[2022-03-18 11:44] LABS: African American GFR (CKD) 101.3 (60.0-200.0); Albumin 4.2 g/dL (3.8-4.9); Albumin/Globulin Ratio 1.68 (1.60-3.17); Anion Gap 11.7 mmol/L (10.00-18.00); BUN/Creat Ratio 25.88 Ratio (12.00-20.00); Blood Urea Nitrogen 20.7 mg/dL (9.0-27.0); Calcium 9.3 mg/dL (8.7-10.3); Carbon Dioxide 26.3 mmol/L (20.0-27.5); Globulin 2.5 g/dL (1.6-3.3); Non-African American GFR(CKD) 87.4 (60.0-200.0); PSA Annual Screen 1.5 ng/mL (0.000-4.000); Potassium 4.2 mmol/L (3.5-5.5); Total Bilirubin 0.4 mg/dL (0.30-1.20); Total Protein 6.7 g/dL (6.2-8.2); Triglycerides 37.7 mg/dL (0.00-149.00)
[2022-03-18 11:45] LABS: C Reactive Protein, High Sens 2.38 mg/L (0.000-3.000); Estradiol 23.8 pg/mL; T4, Free (Free Thyroxine) 1.46 ng/dL (0.800-1.800)
[2022-03-18 12:01] LABS: Chol/HDL Ratio 2.11 Ratio; LDL Cholesterol,Direct Reflex 79.3 mg/dL (0.00-129.00)
[2022-03-18 12:15] LABS: Insulin Level 4.5 mIU/mL (3.0-25.0)
== END | disposition home or self-care (01) ==
LOC: LABWHC1 07:30
PROVIDERS: ATTEND Neuromusculoskeletal Medicine & OMM
DX: N40.0 Benign prostatic hyperplasia without lower urinary tract symptoms (principal); E03.9 Hypothyroidism, unspecified; R53.83 Other fatigue
CPT/HCPCS: 84439; 84481; 80061; 80053; 82728; 82955; 82670; 84443; 85025; 86141; 84402; 84403; 82180; 82627; 83090; 83525; 83721; 82306; 83036; 36415; G0103